=== PATIENT | male | born 1955 | race Caucasian/White ===

== ENCOUNTER 2019-09-02 06:00 | Outpatient (RCR) | payer OTHER, SELFPAY | END 2019-10-02 00:01 | LOC: MPT 06:00 | PROVIDERS: Family Provider Family Medicine; Visit Provider Orthopaedic Surgery | DX: Z47.89 Encounter for other orthopedic aftercare (principal); M25.511 Pain in right shoulder; M25.512 Pain in left shoulder | CPT/HCPCS: 97110 ×4; 97140 ×3 ==

== ENCOUNTER → 2019-10-02 | Outpatient (CLI) | payer SELFPAY | PROVIDERS: Family Provider Family Medicine; Visit Provider Orthopaedic Surgery | DX: S46.911D Strain of unspecified muscle, fascia and tendon at shoulder and upper arm level, right arm, subsequent encounter (principal); X58.XXXD Exposure to other specified factors, subsequent encounter; M19.011 Primary osteoarthritis, right shoulder; R60.9 Edema, unspecified | CPT/HCPCS: 73221 ==

== ENCOUNTER 2019-10-03 06:00 | Outpatient (RCR) | payer OTHER, SELFPAY | END 2019-11-02 23:59 | disposition home or self-care (01) | LOC: MPT 06:00 | PROVIDERS: Family Provider Family Medicine; PCP Family Medicine; Referring Provider Orthopaedic Surgery; Visit Provider Orthopaedic Surgery | DX: M25.512 Pain in left shoulder (principal); M25.511 Pain in right shoulder | CPT/HCPCS: 97110; 97161 ==

== ENCOUNTER 2019-10-03 14:11 | Outpatient (RCR) | payer OTHER, SELFPAY | END 2019-11-02 23:59 | disposition home or self-care (01) | LOC: MPT 14:11 | PROVIDERS: Family Provider Family Medicine; Visit Provider Orthopaedic Surgery | DX: M25.512 Pain in left shoulder (principal); M25.511 Pain in right shoulder | CPT/HCPCS: 97110 ==

== ENCOUNTER → 2019-10-08 15:18 | Outpatient (BNVA) | payer OTHER, SELFPAY | PROVIDERS: Family Provider Family Medicine; PCP Family Medicine; Visit Provider Family Medicine | DX: M54.16 Radiculopathy, lumbar region (principal); I10 Essential (primary) hypertension | CPT/HCPCS: 80048 ==

== ENCOUNTER 2019-11-03 06:00 | Outpatient (RCR) | payer OTHER, SELFPAY | END 2019-11-30 23:59 | disposition home or self-care (01) | LOC: MPT 06:00 | PROVIDERS: Family Provider Family Medicine; PCP Family Medicine; Visit Provider Orthopaedic Surgery | DX: M25.512 Pain in left shoulder (principal); M25.511 Pain in right shoulder | CPT/HCPCS: 97110 ==

== ENCOUNTER 2019-12-02 06:00 | Outpatient (RCR) | payer OTHER, SELFPAY | END 2020-01-01 23:59 | disposition home or self-care (01) | LOC: MPT 06:00 | PROVIDERS: Family Provider Family Medicine; PCP Family Medicine; Visit Provider Orthopaedic Surgery | DX: M25.512 Pain in left shoulder (principal); M25.511 Pain in right shoulder | CPT/HCPCS: 97110 ==

== ENCOUNTER → 2020-08-12 10:23 | Outpatient (BNVA) | payer OTHER, SELFPAY | PROVIDERS: Family Provider Family Medicine; PCP Family Medicine; Visit Provider Family Medicine | DX: I10 Essential (primary) hypertension (principal); Z13.220 Encounter for screening for lipoid disorders; Z13.6 Encounter for screening for cardiovascular disorders; Z91.19 Patient's noncompliance with other medical treatment and regimen; L82.1 Other seborrheic keratosis | CPT/HCPCS: 80053; 80061 ==

== ENCOUNTER → 2021-04-17 14:04 | Outpatient (BNVA) | payer OTHER, SELFPAY | PROVIDERS: Family Provider Family Medicine; PCP Family Medicine; Visit Provider Family Medicine | DX: N20.0 Calculus of kidney (principal); N39.0 Urinary tract infection, site not specified | CPT/HCPCS: 81000 ==

== ENCOUNTER → 2021-06-02 14:02 | Outpatient (BNVA) | payer OTHER, SELFPAY | PROVIDERS: Family Provider Family Medicine; PCP Family Medicine; Visit Provider Family Medicine | DX: Z13.220 Encounter for screening for lipoid disorders (principal); I10 Essential (primary) hypertension; Z13.6 Encounter for screening for cardiovascular disorders; Z86.19 Personal history of other infectious and parasitic diseases; Z13.1 Encounter for screening for diabetes mellitus; R73.9 Hyperglycemia, unspecified | CPT/HCPCS: 80053; 80061; 83036; 83721; 86769 ==

== ENCOUNTER → 2021-07-23 10:47 | Outpatient (BNVA) | payer OTHER, SELFPAY | PROVIDERS: Family Provider Family Medicine; PCP Family Medicine; Visit Provider Family Medicine | DX: Z87.442 Personal history of urinary calculi (principal); R30.0 Dysuria | CPT/HCPCS: 81000 ==

== ENCOUNTER 2021-08-10 10:53 | Outpatient (CLI) | payer OTHER, SELFPAY ==
--- NOTE | 2021-08-10 11:30 | CT_ITS ---
WS: [id number] CT ABDOMEN PELVIS TECHNIQUE: Noncontrast CT of the abdomen and pelvis with coronal and sagittal reformatted images. CLINICAL INFORMATION: Z87.442 - Personal history of urinary calculi COMPARISON: None. DLP: 1219.[address] scans at [facility] use at least one of these dose optimization techniques: automated e xposure control; mA and/or kV adjustment per patient size (includes targeted exams where dose is matc hed to clinical indication); or iterative reconstruction. FINDINGS: Mild hepatomegaly. Low-attenuation lesion in the dome the liver measuring 14 mm likely hepatic cyst. Cholecystectomy clips. Normal GE junction. Lung bases are well aerated. Slight fibrosis right lower l obe medially. Noncontrast spleen is normal. Adrenal glands are normal. No hydronephrosis in either ki dney. No obstructing renal or ureteral calculi. Both ureters are decompressed. Small calculus in the dependent bladder may have recently passed measuring 6 mm. Calcified enlarged prostate. Prostate bharti ures 4.2 x 4.1 CM. Mild fatty atrophy of the pancreas. Lobulated low-attenuation lesion involving the tail of the pancreas measuring 2.7 x 1.6 cm. Normal ap pendix in the right lower quadrant. No evidence of small or large bowel obstruction. Small fat-contai david umbilical hernia. No free fluid in the pelvis. Left renal cortical cyst measuring 1.5 CM. A few nonobstructing tiny calyceal tip calculi. Normal caliber abdominal aorta. No abdominal or pelvic lymp hadenopathy. No inguinal lymphadenopathy. CT/CT kidney stone [id number] IMPRESSION: 1. No obstructing renal or ureteral calculi. No hydronephrosis. 2. Dependent calculus in the bladder measuring 6 mm may have recently passed. 3. Enlarged prostate. Recommend correlation PSA. 4. Prior cholecystectomy clips. 5. Lobulated low-attenuation lesion in the tail of the pancreas measuring 2.7 x 1.6 cm. This can be further evaluated with contrast-enhanced CT abdomen pelvi s pancreatic protocol or MRI pancreas without and with gadolinium. 6. Low-attenuation lesion in the dome of the liver likely hepatic cyst measuri ng 14 mm. 7. Prior cholecystectomy.
== END 2021-08-10 10:54 | disposition home or self-care (01) ==
PROVIDERS: PCP Family Medicine; Visit Provider Family Medicine
DX: Z87.442 Personal history of urinary calculi (principal); Z90.49 Acquired absence of other specified parts of digestive tract; K76.9 Liver disease, unspecified; N40.0 Benign prostatic hyperplasia without lower urinary tract symptoms; N21.0 Calculus in bladder
CPT/HCPCS: 74176

== ENCOUNTER → 2021-08-26 11:16 | Outpatient (BNVA) | payer OTHER, SELFPAY | PROVIDERS: PCP Family Medicine; Visit Provider Family Medicine | DX: I10 Essential (primary) hypertension (principal); Z12.5 Encounter for screening for malignant neoplasm of prostate; N40.0 Benign prostatic hyperplasia without lower urinary tract symptoms | CPT/HCPCS: 80053; 84153 ==

== ENCOUNTER 2021-10-05 11:20 | Outpatient (CLI) | payer OTHER, SELFPAY ==
[2021-10-05 12:43] LABS: Blood Urea Nitrogen 13 mg/dL (8-23); Glomerular Filtration Rate 55.4 mL/min (90-130)
--- NOTE | 2021-10-05 13:00 | CT_ITS ---
WS: [email or web address] CT ABDOMEN PELVIS TECHNIQUE: Contrast-enhanced CT of the abdomen and pelvis with coronal and sagittal reformatted image s. CLINICAL INFORMATION: K86.9 - Disease of pancreas, unspecified COMPARISON: CT August 10, 2021 DLP: 1205.[address] scans at [facility] use at least one of these dose optimization techniques: automated e xposure control; mA and/or kV adjustment per patient size (includes targeted exams where dose is matc hed to clinical indication); or iterative reconstruction. FINDINGS: Again seen is the lobulated low-attenuation lesion in the tail of the pancreas. This does not have a simple cystic appearance and demonstrates peripheral and some internal septal enhancement. This measu res approximately 2.1 x 2.3 cm unchanged from the recent examination. No significant pancreatic duct al dilatation. No other visualized pancreatic lesions. Diffuse fatty infiltration of the liver. Mild hepatomegaly. Prior cholecystectomy clips. Small hepati c cysts. Normal portal vein and splenic vein. Normal spleen. Normal GE junction. Lung bases are well aerated. Adrenal glands are normal. Normal renal parenchymal enhancement. No hydronephrosis. Small ri ght renal cortical cyst measuring 1.5 cm Normal sigmoid colon. Calcified enlarged prostate measuring 4.4 x 4.6 cm. Bilateral thickening of the seminal vesicles. Recommend correlation PSA. No abdominal or pelvic lymphadenopathy. CT/CT abdomen pelvis w con* [id number] IMPRESSION: 1. Peripherally enhancing low-attenuation pancreatic lesion in the tail the pa ncreas measuring 2.3 x 2.1 CCM. Small amount of internal septal enhancement. No pancreatic ductal dilatation. Primary differential considerations include cyst ic pancreatic neoplasm including serous or mucinous Cystadenoma/carcinoma. Side branch IPMN is an additional less likely consideration. Recommend further evalu ation with MRI pancreas without and with gadolinium for better anatomic detail. 2. No abdominal or pelvic lymphadenopathy. 3. Diffuse fatty infiltration of the liver. 4. Enlarged prostate measuring 4.6 x 4.4 cm with associated diffuse thickening of the seminal vesicles. Recommend correlation PSA.
== END 2021-10-05 11:21 | disposition home or self-care (01) ==
PROVIDERS: PCP Family Medicine; Visit Provider Family Medicine
DX: K86.9 Disease of pancreas, unspecified (principal); R93.5 Abnormal findings on diagnostic imaging of other abdominal regions, including retroperitoneum; N40.0 Benign prostatic hyperplasia without lower urinary tract symptoms; K76.0 Fatty (change of) liver, not elsewhere classified
CPT/HCPCS: 74177; 82565; 84520; Q9967

== ENCOUNTER → 2021-10-20 14:30 | Outpatient (BNVA) | payer OTHER, SELFPAY | PROVIDERS: PCP Family Medicine; Visit Provider Family Medicine | DX: K76.0 Fatty (change of) liver, not elsewhere classified (principal); N18.2 Chronic kidney disease, stage 2 (mild); N40.0 Benign prostatic hyperplasia without lower urinary tract symptoms; Z12.5 Encounter for screening for malignant neoplasm of prostate; K86.9 Disease of pancreas, unspecified; R93.5 Abnormal findings on diagnostic imaging of other abdominal regions, including retroperitoneum; Z87.442 Personal history of urinary calculi | CPT/HCPCS: 80053; 84153 ==

== ENCOUNTER 2021-11-02 08:47 | Outpatient (CLI) | payer OTHER, SELFPAY ==
--- NOTE | 2021-11-02 08:53 | XR_ITS ---
WS: [email or web address] XR KUB [id number] REASON FOR EXAM: HX OF RENAL CALCULI FINDINGS: No renal or ureteral calculi. No calculi overlying the urinary bladder. No other significant abdominal abnormality. XR/XR KUB [id number] IMPRESSION: No urinary tract calculi.
== END 2021-11-02 08:48 | disposition home or self-care (01) ==
LOC: RAD 08:49
PROVIDERS: PCP Family Medicine; Visit Provider Urology
DX: Z87.442 Personal history of urinary calculi (principal)
CPT/HCPCS: 74018; 81003

== ENCOUNTER 2022-02-04 15:03 | Outpatient (CLI) | payer OTHER, SELFPAY ==
--- NOTE | 2022-02-04 15:15 | MR_ITS ---
WS: [id number] MRI ABDOMEN with and without CONTRAST. COMPARISON: 10/05/2021 Multiplanar, multisequence imaging is performed with and without contrast. Sagittal and axial T1 fat sat sequences post-MultiHance 20 cc IV. As described on a prior CT is a predominant cystic mass in the tail of the pancreas. This mass has in creased in size now measuring 3.0 x 2.3 cm. On the postcontrast images there is mild peripheral wall enhancement. The pancreatic duct distal to the mass is not dilated. No pancreatic atrophy. The body a nd head of the pancreas are normal. This mass is predominantly cystic and may be related to the duct. Liver is very mildly prominent with 2 cysts. The larger cyst measures 12 x 13 mm just to the RIGHT of the LEFT portal vein. No portal vein thrombosis. No bile duct dilatation. There is loss of signal on the out of phase imaging. Spleen is normal size. No adrenal mass. Both kidneys are normal size. There is a simple cyst exophytic from the medial upper pole LEFT kidney . This cyst measures 1.3 x 1.3 cm. No wall enhancement. There is no ascites or adenopathy. Normal aorta. Mesenteric arteries are normally enhancing proximall y. MR/MR abdomen wo/w con* [id number] IMPRESSION: 1. Mild enlargement of the previously described cystic mass in the pancreatic t ail since 10/05/2021. There is mild enhancement of the wall of this pancreatic ma ss. Cystic mass mass now measures 3.0 x 2.3 cm as compared to 2.1 x 2.3 cm on t he prior CT. Differential includes cystic neoplasm or IPMN. Surgical evaluation and possible removal is recommended as malignancy is not excluded due to the w all enhancement and increasing size. 2. Small hepatic cysts and LEFT renal cysts. 3. Hepatic steatosis.
[2022-02-04] MEDS: gadobenate dimeglumine 20 mL vial IV (16:07)
== END 2022-02-04 15:04 | disposition home or self-care (01) ==
LOC: RAD 15:04
PROVIDERS: PCP Family Medicine; Visit Provider Family Medicine
DX: K86.9 Disease of pancreas, unspecified (principal); R93.5 Abnormal findings on diagnostic imaging of other abdominal regions, including retroperitoneum
CPT/HCPCS: 74183

== ENCOUNTER 2022-05-03 12:35 | Outpatient (CLI) | payer OTHER, SELFPAY ==
--- NOTE | 2022-05-03 12:30 | XR_ITS ---
WS: [email or web address] KUB, AP view, 05/03/2022. Clinical Data: UROLITHIASIS Comparison: KUB, 11/02/2021. Findings: No abnormal intraabdominal masses or calcifications are seen. There is no dilatated small bowel or ev idence of obstruction. There is a minimal amount of fecal material in the colon. XR/XR KUB [id number] Impression: Negative KUB.
== END 2022-05-03 12:36 | disposition home or self-care (01) ==
LOC: RAD 12:36
PROVIDERS: PCP Family Medicine; Visit Provider Urology
DX: N20.9 Urinary calculus, unspecified (principal); N40.1 Benign prostatic hyperplasia with lower urinary tract symptoms
CPT/HCPCS: 74018; 99213

== ENCOUNTER → 2022-07-19 10:02 | Outpatient (BNVA) | payer OTHER, SELFPAY | PROVIDERS: PCP Family Medicine; Visit Provider Family Medicine | DX: I10 Essential (primary) hypertension (principal); Z13.220 Encounter for screening for lipoid disorders; Z13.6 Encounter for screening for cardiovascular disorders; K86.9 Disease of pancreas, unspecified; J01.10 Acute frontal sinusitis, unspecified | CPT/HCPCS: 80053; 80061 ==

== ENCOUNTER → 2022-10-06 10:02 | Outpatient (BNVA) | payer OTHER, SELFPAY | PROVIDERS: PCP Family Medicine; Visit Provider Family Medicine | DX: I10 Essential (primary) hypertension (principal); H65.90 Unspecified nonsuppurative otitis media, unspecified ear; M25.511 Pain in right shoulder; S46.811A Strain of other muscles, fascia and tendons at shoulder and upper arm level, right arm, initial encounter; X58.XXXA Exposure to other specified factors, initial encounter | CPT/HCPCS: 73030 ==

== ENCOUNTER → 2022-10-19 09:52 | Outpatient (BNVA) | payer OTHER, SELFPAY | PROVIDERS: PCP Family Medicine; Visit Provider Family Medicine | DX: M54.2 Cervicalgia (principal); M25.511 Pain in right shoulder; S46.811A Strain of other muscles, fascia and tendons at shoulder and upper arm level, right arm, initial encounter; I10 Essential (primary) hypertension; X58.XXXA Exposure to other specified factors, initial encounter | CPT/HCPCS: 72040; 80048 ==

== ENCOUNTER → 2022-11-11 14:38 | Outpatient (BNVA) | payer OTHER, SELFPAY | PROVIDERS: PCP Family Medicine; Referring Provider Nurse Practitioner Family; Visit Provider Physician Assistant | DX: M50.30 Other cervical disc degeneration, unspecified cervical region (principal); M47.812 Spondylosis without myelopathy or radiculopathy, cervical region | CPT/HCPCS: 72050; 99203 ==

== ENCOUNTER 2022-11-29 06:00 | Outpatient (RCR) | payer OTHER, SELFPAY | END 2022-11-30 23:59 | disposition home or self-care (01) | LOC: MPT 06:00 | PROVIDERS: PCP Family Medicine; Visit Provider Physician Assistant | DX: M54.2 Cervicalgia (principal) | CPT/HCPCS: 51798; 97110; 97161; 99213 ==

== ENCOUNTER 2022-11-29 14:54 | Outpatient (CLI) | payer OTHER, SELFPAY ==
--- NOTE | 2022-11-29 15:06 | XR_ITS ---
WS: [email or web address] KUB, AP view, 11/29/2022 Clinical Data: STONES Comparison: KUB, 05/03/2022 Findings: No abnormal intraabdominal masses or calcifications are seen. There is no dilatated small bowel or ev idence of obstruction. There is a minimal amount of fecal material in the descending colon. There are clips in the right upp er quadrant from a cholecystectomy. XR/XR KUB [id number] Impression: Negative KUB.
== END 2022-11-29 14:55 | disposition home or self-care (01) ==
LOC: LAB 14:59
PROVIDERS: PCP Family Medicine; Visit Provider Urology
DX: N20.9 Urinary calculus, unspecified (principal); N40.1 Benign prostatic hyperplasia with lower urinary tract symptoms
CPT/HCPCS: 74018; 81003

== ENCOUNTER 2022-12-01 06:00 | Outpatient (RCR) | payer OTHER, SELFPAY | END 2022-12-31 23:59 | disposition home or self-care (01) | LOC: MPT 06:00 | PROVIDERS: PCP Family Medicine; Visit Provider Physician Assistant | DX: M54.2 Cervicalgia (principal) | CPT/HCPCS: 97110; 97140; G0283 ==

== ENCOUNTER → 2022-12-23 12:56 | Outpatient (BNVA) | payer OTHER, SELFPAY | PROVIDERS: PCP Family Medicine; Visit Provider Physician Assistant | DX: M47.812 Spondylosis without myelopathy or radiculopathy, cervical region (principal); M50.30 Other cervical disc degeneration, unspecified cervical region; M54.12 Radiculopathy, cervical region | CPT/HCPCS: 99213 ==

== ENCOUNTER 2022-12-31 14:57 | Outpatient (CLI) | payer OTHER, SELFPAY ==
--- NOTE | 2022-12-31 15:15 | MR_ITS ---
WS: [id number] MRI CERVICAL SPINE NONCONTRAST HISTORY: Neck pain, RIGHT upper extremity pain. COMPARISON: None available. Technique: Multiplanar, multisequence noncontrast imaging of the cervical spine. Straightening of the normal cervical lordosis. Signal within the cervical cord is normal. Visualized posterior fossa is unremarkable. Craniocervical junction, C1 and C2 relationship, odontoid process and soft tissues are normal. C2-C3: LEFT foraminal disc osteophyte. Mild encroachment and displacement of the exiting nerve root. Moderate LEFT foraminal stenosis. C3-C4: Osteophytic ridging and disc bulging. Bilateral foraminal osteophytes. Moderate bilateral fora elle stenosis. C4-C5: Disc and osteophyte encroachment upon the ventral thecal sac. Effacement of ventral CSF with b ilateral disc osteophyte complexes and the neural foramina. Mild central with moderate foraminal sten osis. C5-C6: Mild annular disc bulging with moderate size central disc protrusion. Deformity the ventral th ecal sac. Moderate to severe central with mild foraminal stenosis. C6-C7: Mild annular disc bulging and osteophytic ridging. Small central disc protrusion. Moderate emilia ateral foraminal osteophytes. Moderate central with moderate bilateral foraminal stenosis. C7-T1: Normal. Paraspinal soft tissue are normal. MR/MR cervical spin wo con* [id number] IMPRESSION: 1. Straightening of the normal cervical lordosis. 2. Multilevel disc osteophyte complexes resulting in central and foraminal valentine nosis. 3. Moderate to severe central with mild bilateral foraminal stenosis at C5-6. 4. Moderate central with moderate bilateral foraminal stenosis at C6-7. 5. Moderate LEFT foraminal stenosis at C2-3. 6. Moderate bilateral foraminal stenosis at C3-4. 7. Mild central with moderate foraminal stenosis at C4-5.
== END 2022-12-31 14:58 | disposition home or self-care (01) ==
PROVIDERS: PCP Family Medicine; Visit Provider Physician Assistant
DX: M47.812 Spondylosis without myelopathy or radiculopathy, cervical region (principal); M25.78 Osteophyte, vertebrae; M48.02 Spinal stenosis, cervical region
CPT/HCPCS: 72141

== ENCOUNTER 2023-01-01 06:00 | Outpatient (RCR) | payer OTHER, SELFPAY | END 2023-01-30 23:59 | disposition home or self-care (01) | LOC: MPT 06:00 | PROVIDERS: PCP Family Medicine; Visit Provider Physician Assistant | DX: M54.2 Cervicalgia (principal) | CPT/HCPCS: 97110; 97140; G0283 ==

== ENCOUNTER → 2023-01-18 10:46 | Outpatient (BNVA) | payer OTHER, SELFPAY | PROVIDERS: PCP Family Medicine; Visit Provider Physician Assistant | DX: M50.30 Other cervical disc degeneration, unspecified cervical region (principal); M47.22 Other spondylosis with radiculopathy, cervical region | CPT/HCPCS: 99213 ==

== ENCOUNTER 2023-03-03 06:00 | Outpatient (RCR) | payer OTHER, SELFPAY | END 2023-04-01 23:59 | disposition home or self-care (01) | LOC: MPT 06:00 | PROVIDERS: PCP Family Medicine; Visit Provider Physician Assistant | DX: M54.2 Cervicalgia (principal) | CPT/HCPCS: 97110; 97140 ==

== ENCOUNTER → 2023-03-09 09:12 | Outpatient (BNVA) | payer OTHER, SELFPAY | PROVIDERS: PCP Family Medicine; Referring Provider Nurse Practitioner Family; Visit Provider Anesthesiology Pain Medicine | DX: M48.02 Spinal stenosis, cervical region (principal) | CPT/HCPCS: 99204 ==

== ENCOUNTER 2023-04-02 06:00 | Outpatient (RCR) | payer OTHER, SELFPAY | END 2023-04-21 23:59 | disposition home or self-care (01) | LOC: MPT 06:00 | PROVIDERS: PCP Family Medicine; Visit Provider Physician Assistant | DX: M54.2 Cervicalgia (principal) | CPT/HCPCS: 97110; 97140; G0283 ==

== ENCOUNTER → 2023-04-11 09:35 | Outpatient (BNVA) | payer OTHER, SELFPAY | PROVIDERS: PCP Family Medicine; Visit Provider Family Medicine | DX: Z12.5 Encounter for screening for malignant neoplasm of prostate (principal); I10 Essential (primary) hypertension; Z13.1 Encounter for screening for diabetes mellitus; R73.9 Hyperglycemia, unspecified; N18.2 Chronic kidney disease, stage 2 (mild) | CPT/HCPCS: 80053; 80061; 83036; 83721; G0103 ==

== ENCOUNTER → 2023-04-28 09:28 | Outpatient (BNVA) | payer OTHER, SELFPAY | PROVIDERS: PCP Family Medicine; Visit Provider Anesthesiology Pain Medicine | DX: M54.16 Radiculopathy, lumbar region (principal); M48.02 Spinal stenosis, cervical region | CPT/HCPCS: 99214 ==

== ENCOUNTER → 2023-07-28 10:26 | Outpatient (BNVA) | payer OTHER, SELFPAY | PROVIDERS: PCP Family Medicine; Visit Provider Anesthesiology Pain Medicine | DX: M54.16 Radiculopathy, lumbar region (principal); M79.601 Pain in right arm | CPT/HCPCS: 99214 ==

== ENCOUNTER → 2024-04-09 11:46 | Outpatient (BNVA) | payer OTHER, SELFPAY | PROVIDERS: PCP Family Medicine; Visit Provider Family Medicine | DX: Z12.5 Encounter for screening for malignant neoplasm of prostate (principal); I10 Essential (primary) hypertension; R74.8 Abnormal levels of other serum enzymes; N18.2 Chronic kidney disease, stage 2 (mild) | CPT/HCPCS: 80053; 80061; 82977; 83690; 83721; G0103 ==

== ENCOUNTER 2024-04-27 08:38 | Outpatient (CLI) | payer OTHER, SELFPAY ==
--- NOTE | 2024-04-27 09:00 | US_ITS ---
WS: [email or web address] Complete ABDOMINAL ULTRASOUND HISTORY: R74.8 - Abnormal levels of other serum enzymes COMPARISON: None available. Liver: 17.5 cm in length. Liver is top normal size. Surface of the liver is irregular and nodular typ ically seen with cirrhosis. The entire liver is not well visualized. There is a tiny hypoechoic regio n in a portion of the liver, suspect this is the LEFT lobe measuring 1.1 x 1.1 x 1.1 cm. This is prob ably a small cyst. Portal Vein: Normal hepatopetal flow with monophasic waveform. Gallbladder: Prior cholecystectomy. CBD: 0.8 cm, common bile duct is not adequately visualized. Appears to be top normal size. Probably d ue to the postcholecystectomy state. No intrahepatic dilatation. Pancreas: Obscured. Right kidney: 10.3 cm x 4.5 x 5.4 cm. Cortex:1.1 cm. Normal size and echogenicity. No hydronephrosis or mass. Left kidney: 10.2 cm x 4.3 cm x 4.7 cm. Cortex: 1.3 cm. Normal size and echogenicity. No hydronephrosis or mass. Spleen: 8.7 cm. Normal size and echogenicity. Aorta and IVC: Unremarkable abdominal aorta and IVC. US/US abdomen complete* [id number] Impression: 1. Technically difficult and limited evaluation of the abdominal structures. 2. Prior cholecystectomy. 3. Hepatic steatosis. Surface of the liver is slightly irregular suggesting ci rrhosis. No solid mass or bile duct dilatation. 4. Pancreas not visualized. 5. No renal obstruction.
== END 2024-04-27 08:39 | disposition home or self-care (01) ==
LOC: RAD 08:38
PROVIDERS: PCP Family Medicine; Visit Provider Family Medicine
DX: R74.8 Abnormal levels of other serum enzymes (principal); Z90.49 Acquired absence of other specified parts of digestive tract; K76.0 Fatty (change of) liver, not elsewhere classified; K76.89 Other specified diseases of liver
CPT/HCPCS: 76700

== ENCOUNTER → 2024-10-24 14:01 | Outpatient (BNVA) | payer OTHER, SELFPAY | PROVIDERS: PCP Family Medicine; Visit Provider Family Medicine | DX: I10 Essential (primary) hypertension (principal); K76.0 Fatty (change of) liver, not elsewhere classified; E78.2 Mixed hyperlipidemia; R73.03 Prediabetes | CPT/HCPCS: 80053; 80061; 83036; 83721 ==

== ENCOUNTER 2025-02-17 08:42 | Inpatient (IN) | payer OTHER, SELFPAY ==
[2025-02-17] VITALS (9 sets, daily range): BP systolic 149–174; BP diastolic 86–99; PULSE 62–83; RESP 18–19; TEMP 36.6–36.9; O2SAT 96–99; BMI 30.2
--- NOTE | 2025-02-17 08:43 | XRR_ITS ---
PROCEDURE INFORMATION: Exam: XR Chest Exam date and time: 02/17/2025 8:55 AM Age: 69 years old Clinical indication: Pain; Chest pressure; Additional info: Cp TECHNIQUE: Imaging protocol: Radiologic exam of the chest. Views: 1 view. COMPARISON: MR cervical spin wo con* [id number] 12/31/2022 4:00 PM FINDINGS: Lungs: Unremarkable. No consolidation. Pleural spaces: Unremarkable. No pleural effusion. No pneumothorax. Heart/Mediastinum: Unremarkable. No cardiomegaly. Bones/joints: There are degenerative changes of the thoracic spine XR/XR chest 1V portable [id number] IMPRESSION: No acute abnormality
--- NOTE | 2025-02-17 08:47 | ECG_ITS ---
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 Measurements Intervals [place] Rate: 75 P: 70 ID: [id number] QRS: 85 QRSD: 145 T: 38 QT: 405 QTc: 455 Interpretive Statements SINUS RHYTHM RIGHT BUNDLE BRANCH BLOCK [120+ ms QRS DURATION, UPRIGHT V1, 40+ ms S IN I/aVL/V4/V5/V6] No previous ECG available for comparison Electronically Signed On 02-17-2025 12:28:18 CDT by Beverly Kaplan M.D. [email or web address]
[2025-02-17 09:13] LABS: Basophils # 0.1 10^3/uL (0.0-0.1); Basophils % 0.8 %; Eosinophils # 0.1 10^3/uL (0.0-0.8); Eosinophils % 2.4 %; Hematocrit 47.2 % (37-53); Lymphocytes # 2.5 10^3/uL (0.8-4.8); Lymphocytes % 42.2 %; Mean Corpuscular HGB Conc 33.7 g/dL (30-55); Mean Corpuscular Hemoglobin 29.8 pg (27-33); Mean Corpuscular Volume 88.6 fl (82-101); Mean Platelet Volume 9.6 fL (7.4-10.4); Monocytes # 0.4 10^3/uL (0.2-0.9); Monocytes % 6.6 %; Neutrophils # 2.84 10^3/uL (1.8-7.7); Neutrophils % 47.8 %; Nucleated Red Blood Cells % 0 %; Platelet Count 192 10^3/cmm (157-399); Red Blood Count 5.33 10^6/uL (3.85-5.65); White Blood Count 5.93 10^3/uL (3.29-11.43)
[2025-02-17 09:28] LABS: Troponin(5th) Baseline 50 ng/L (0-15)
[2025-02-17 09:35] LABS: Alanine Aminotransferase 43 U/L (0-41); Albumin Level 4.4 g/dL (3.5-5.2); Alkaline Phosphatase 78 U/L (40-130); Anion Gap 17.1 (5-19); Aspartate Amino Transferase 40 U/L (0-40); Blood Urea Nitrogen 19 mg/dL (8-23); Calcium 10.1 mg/dL (8.5-10.5); Carbon Dioxide 23 mmol/L (22-29); Chloride 103 mmol/L (98-107); Globulin 3.3 g/dL (1.3-4.6); Glomerular Filtration Rate 66.6 mL/min (90-130); Glucose 112 mg/dL (65-115); Lipase 104 U/L (13-60); Osmolality Calculated 291 mOsm/kg (285-295); Potassium 4.1 mmol/L (3.5-5.1); Sodium 139 mmol/L (136-145); Total Bilirubin 0.5 mg/dL (0.15-1.2); Total Protein 7.7 g/dL (6.6-8.7)
--- NOTE | 2025-02-17 09:57 | W.ED.CHESTPA ---
HPI - Chest Pain General: Chief Complaint: Chest Pain Stated Complaint: chest pain Time Seen by Provider: 02/17/25 09:09 Source: patient Mode of arrival: ambulatory Limitations: no limitations History of Present Illness: 69-year-old male states has been having some intermittent chest pain since . States he had a pressure type pain seems to come and go he states he had a pain this morning he is currently pain-free no history of heart disease. He denies any fever cough denies any worse improved factors. Associated symptoms: Deny abdominal pain, dyspnea, fever(s), nausea or vomiting Related Data Home Medications ?Medication ?Instructions ?Recorded ?Confirmed ascorbic acid (vitamin C) 1,000 mg 1,000 mg PO DAILY 02/17/25 02/17/25 tablet (Vitamin C) cholecalciferol (vitamin D3) 125 125 mcg PO DAILY 02/17/25 02/17/25 mcg (5,000 unit) tablet (Vitamin D3) garlic 300 mg capsule 300 mg PO DAILY 02/17/25 02/17/25 multivitamin with minerals-folic 1 tab PO DAILY 02/17/25 02/17/25 acid 400 mcg-lycopene 370 mcg tablet (One-A-Day Men's 50 Plus) omega-3 fatty acids-fish oil 684 1 cap PO DAILY 02/17/25 02/17/25 mg-1,200 mg capsule,delayed release Previous Rx's ?Medication ?Instructions ?Recorded losartan 50 mg-hydrochlorothiazide 1 tab PO BID 90 days #180 tabs 04/09/24 12.5 mg tablet Held on 10/24/24. Instructions: pt holding on his own Allergies Allergy/AdvReac Type Severity Reaction Status Date / Time prednisone Allergy Mild ADR-Headach Verified 10/24/24 13:34 e Review of Systems Const: Denies: fever(s), chills, body aches or change in appetite ENMT: Denies: throat pain or dental pain Card: Reports: chest pain Resp: Denies: dyspnea GI: Denies: abdominal pain, nausea, vomiting or diarrhea Musc: Denies: neck pain or back pain Skin/Breast: Denies: rash Neuro: Denies: headache(s) PFSH ED PFSH: Medical History BPH loc w urin obs/LUTS Urolithiasis Hypertension Surgical History H/O shoulder surgery Hx of cholecystectomy Family History Father , at age 92 No problems noted. Mother , at age 86 Stroke Social History Smoking and tobacco/nicotine status: never used tobacco/nicotine Alcohol intake: current Alcohol intake frequency: holidays/special occasions only Substance/Drug Use: never Marital status: Current occupational status: retired Current occupation: semi retired Current gender identity: Male Physical Exam Const: COMMON NORMALS: no acute distress, patient oriented x3 and healthy appearing HENMT: COMMON NORMALS: normocephalic and atraumatic HEAD & SCALP: normocephalic and atraumatic Eye: COMMON NORMALS: conjunctivae normal CONJUNCTIVA: Yes conjunctivae normal Neck/C-Spine: COMMON NORMALS: full ROM and supple Chest: COMMONS NORMALS: normal inspection of the chest and normal palpation of entire chest wall Resp: COMMON NORMALS: normal respiratory effort, No retractions, No use of accessory muscles and clear to auscultation bilaterally AUSCULTATION: clear to auscultation bilaterally Cardio: COMMON NORMALS: regular rate, regular rhythm and No murmurs present (Cardio) RATE: regular rate RHYTHM: regular rhythm GI: COMMON NORMALS: Normal to inspection, nondistended, normoactive bowel sounds present, Soft to palpation, non-tender and no masses PALPATION: Yes Soft to palpation Extremity: COMMON NORMALS: normal to inspection and full ROM Neuro: COMMON NORMALS: patient oriented x3, moves all extremities and no focal motor deficits Psych: COMMON NORMALS: mental status grossly normal, Normal thought process present and cooperative THOUGHT PROCESS: Normal thought process present Skin: COMMON NORMALS: no rashes or lesions noted and no wounds GENERAL SKIN EXAM: no rashes or lesions noted Course Vital Signs: Vital signs: Vital Signs Temperature 98.4 F 02/17/25 08:47 Pulse Rate 62 02/17/25 10:36 Respiratory Rate 18 02/17/25 08:47 Blood Pressure 152/95 02/17/25 10:36 Pulse Oximetry 96 02/17/25 10:36 Oxygen Delivery Me thod Room Air 02/17/25 10:36 MDM - Chest Pain Medical Decision Making Patient presents for chest pain he been chest pain-free here 2-hour troponin did have a delta of 9 will admit for ACS rule out. Medical Records I reviewed the patient's medical records. Lab Data I reviewed the patient's lab results. 02/17/25 09:04 02/17/25 09:04 Radiology Impressions Chest X-Ray 02/17/25 08:43 IMPRESSION: No acute abnormality Laboratory Results WBC 5.93 10^3/uL (3.29-11.43) 02/17/25 09:04 RBC 5.33 10^6/uL (3.85-5.65) 02/17/25 09:04 Hgb 15.90 g/dL (11.27-16.99) 02/17/25 09:04 Hct 47.2 % (37-53) 02/17/25 09:04 MCV 88.6 fl (82-101) 02/17/25 09:04 MCH 29.8 pg (27-33) 02/17/25 09:04 MCHC 33.7 g/dL (30-55) 02/17/25 09:04 RDW 12.0 % (12.1-15.1) L 02/17/25 09:04 Plt Count 192 10^3/cmm (157-399) 02/17/25 09:04 MPV 9.6 fL (7.4-10.4) 02/17/25 09:04 Neut % (Auto) 47.8 % 02/17/25 09:04 Lymph % (Auto) 42.2 % 02/17/25 09:04 [place] % (Auto) 6.6 % 02/17/25 09:04 Eos % (Auto) 2.4 % 02/17/25 09:04 Baso % (Auto) 0.8 % 02/17/25 09:04 Neut # (Auto) 2.84 10^3/uL (1.8-7.7) 02/17/25 09:04 Lymph # (Auto) 2.5 10^3/uL (0.8-4.8) 02/17/25 09:04 [place] # (Auto) 0.4 10^3/uL (0.2-0.9) 02/17/25 09:04 Eos # (Auto) 0.1 10^3/uL (0.0-0.8) 02/17/25 09:04 Baso # (Auto) 0.1 10^3/uL (0.0-0.1) 02/17/25 09:04 Nucleated RBC % (auto) 0 % 02/17/25 09:04 Nucleated RBCs # 0.0 /100WBC 02/17/25 09:04 Sodium 139 mmol/L (136-145) 02/17/25 09:04 Potassium 4.1 mmol/L (3.5-5.1) 02/17/25 09:04 Chloride 103 mmol/L (98-107) 02/17/25 09:04 Carbon Dioxide 23 mmol/L (22-29) 02/17/25 09:04 Anion Gap 17.1 (5-19) 02/17/25 09:04 BUN 19 mg/dL (8-23) 02/17/25 09:04 Creatinine 1.1 mg/dL (0.7-1.2) 02/17/25 09:04 GFR Calculation 66.6 mL/min (90-130) L 02/17/25 09:04 Glucose 112 mg/dL (65-115) 02/17/25 09:04 Calculated Osmolality 291 mOsm/kg (285-295) 02/17/25 09:04 Calcium 10.1 mg/dL (8.5-10.5) 02/17/25 09:04 Total Bilirubin 0.5 mg/dL (0.15-1.2) 02/17/25 09:04 AST 40 U/L (0-40) 02/17/25 09:04 ALT 43 U/L (0-41) H 02/17/25 09:04 Alkaline Phosphatase 78 U/L (40-130) 02/17/25 09:04 Troponin T Baseline 50 ng/L (0-15) H 02/17/25 09:04 Troponin T 120 Minute 59.78 ng/L (0-15) H 02/17/25 11:13 Delta Troponin T 9.78 ABS# (0-10) 02/17/25 11:13 Total Protein 7.7 g/dL (6.6-8.7) 02/17/25 09:04 Albumin 4.4 g/dL (3.5-5.2) 02/17/25 09:04 Globulin 3.3 g/dL (1.3-4.6) 02/17/25 09:04 Lipase 104 U/L (13-60) H 02/17/25 09:04 All radiology interpretation(s) finalized by discharge EKG Data EKG 1: I personally reviewed and interpreted this EKG as follows: EKG interpretation date: 02/17/25 EKG interpretation time: 08:47 Interpretation: nsr hr [address] elevation qrs 145 qtc 435 EKG 2: I personally reviewed and interpreted this EKG as follows: EKG interpretation date: 02/17/25 EKG interpretation time: 11:40 Interpretation: sinus honey hr [address] elevation qrs 145 qtc 396 Discharge Plan Discharge Patient Disposition: Admitted As Inpatient Clinical Impression: Chest pain Condition: Stable Coding Level of Care Code ED Ophthalmic Medical Technologist for Edison Donato
--- NOTE | 2025-02-17 10:31 | PC.PHAR ---
Patient states he stopped taking his Losartan-hct ,but yesterday he took one tablet hoping it would make him feel better ..
[2025-02-17 11:35] LABS: Troponin 5 2HR 59.78 ng/L (0-15); Troponin 5 2HR Delta 9.78 ABS# (0-10)
--- NOTE | 2025-02-17 11:40 | ECG_ITS ---
[facility] 2025-02-17 Pat Name: Abhay Lara Department: Room: Gender: Male Auto Transmission Mechanic: : 1955 Requested By: Hubert Vines Order Number: [id number] Danyelle MD: Beverly Kaplan M.D. Measurements Intervals [place] Rate: 51 P: 56 [place]: 154 QRS: 82 QRSD: 145 T: 37 QT: 418 QTc: 389 Interpretive Statements SINUS BRADYCARDIA RIGHT BUNDLE BRANCH BLOCK [120+ ms QRS DURATION, UPRIGHT V1, 40+ ms S IN I/aVL/V4/V5/V6] Compared to ECG 02/17/2025 08:47:39 Sinus rhythm no longer present Electronically Signed On 02-17-2025 12:36:58 CDT by Beverly Kaplan M.D. [email or web address]
--- OUTSIDE RECORDS SUMMARY | 2025-02-17 12:17 | XMS_ITS | Continuity of Care Document ---
Author Name [facility] Organization [facility] Care Team Providers Care Spring Encaser Name Role Phone [facility] Unavailable Unavailable Problems Combined list of problems from Department of Defense and Veterans Affairs facilities. It does not include entries that were removed or entered in error. Problem Status Onset Date Problem Type Date of Resolution Comments Source Chronic kidney disease stage 2 Active Condition Nov 18, 2021 Entered By: SHIVANI ACEVEDO Comment: 10/20/21 - eGFR 60-89ml/min [facility] Chronic sinusitis Active Condition [facility] Cigarette smoker Active Condition Nov 18, 2021 Entered By: SHIVANI ACEVEDO Comment: Daily [facility] Contusion of hand Active Condition [facility] Disorder of pancreas Active Condition Nov 18, 2021 Entered By: SHIVANI ACEVEDO Comment: 10/05/2021 - CT abdomen pelvis with contrast per Dr. Carina Nguyễn - peripherally enhancing low-attenuati on pancreatic lesion in the tail of the pancreas measuring 2.3x2.1cm. [facility] Elevated liver enzymes level Active Condition [facility] Enlarged prostate Active Condition 2021 Entered By: SHIVANI ACEVEDO Comment: Per [facility] - 10/05/21 CT scan - enlarged prostate measuring 4.6x4.4cm with associated diffuse thickening of the seminal vesicles. [facility] Fatty liver Active Condition Nov 18, 2021 Entered By: SHIVANI ACEVEDO Comment: Per CT Scan on 10/05/21 at [facility] Hand joint pain Active Condition [facility] Hernia (SNOMED CT 64996348) Active Condition [facility] History of kidney stone Active Condition [facility] HLD - Hyperlipidemia (SNOMED CT 24395826) Active Condition [facility] HTN - Hypertension (SNOMED CT 48928594) Active Condition [facility] Medial epicondylitis [facility] - Tetanus-diphtheria [td] [dt] (ICD-9-CM V06.5) Inactive Condition 12/07/2019 [facility] Allergies, Adverse Reactions, Alerts Combined list of allergies from [facility] and [facility] facilities. It does not include entries that were removed or entered in error. Substance Category Reaction Severity Reaction type Status Date Reported Comments Source ATORVASTATIN Propensity to adverse reactions to drug (finding) Muscle pain active 4 [facility] PREDNISONE Propensity to adverse reactions to drug (finding) active 0 [facility] Immunizations Combined list of available immunizations from the [facility] and [facility] facilities. Immunization Series Date Given Administered By Site Reaction Lot Number CVX Code Drug Legal Analyst Status Comments Source TDAP 2019 115 complet ed [facility] TDAP 2013 115 complet ed Left Deltoid [facility] Encounters Combined list of: 1) Encounters from Department of Veterans Affairs facilities going backup to the last 18 months, not all [place] inpatient encounters are included; 2) Encounters from the [facility] facilities going backup to 280 months. Location Location Details Encounter Type Encounter Number Reason For Visit Attending Provider ADM Date DC Date Status Disposition Source [facility] Outpatient Encounter [id number] 09/21 [facility] Outpatient Encounter [id number] 10/10 [facility] Outpatient Encounter [id number] 10/17 [facility] Outpatient Encounter [id number] Jhony NGUYỄN 10/18 [facility] Social History Combined list of available smoking, tobacco, and other social history from [facility] and Veterans Affairs facilities. Social History Type Response Date Comment Sour e Tobacco smoking status [facility] NEVER USED 11/29/2019 [facility] History of tobacco use QUIT TOBACCO >7 Y EARS AGO 12/27/2013 [facility]
[2025-02-17] MEDS: enoxaparin 100 mg/mL Syringe 90 MG SUBCUT (12:40)
--- NOTE | 2025-02-17 14:43 | ECG_ITS ---
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 Measurements Intervals [place] Rate: 68 P: 68 FL: 169 QRS: 72 QRSD: 141 T: 30 QT: 387 QTc: 412 Interpretive Statements SINUS RHYTHM RIGHT BUNDLE BRANCH BLOCK [120+ ms QRS DURATION, UPRIGHT V1, 40+ ms S IN I/aVL/V4/V5/V6] Compared to ECG 02/17/2025 11:40:22 Sinus bradycardia no longer present Electronically Signed On 02-17-2025 19:58:52 CDT by Beverly Kaplan M.D. [email or web address]
[2025-02-17 15:49] LABS: Troponin 5 6HR 93.44 ng/L (0-15)
[2025-02-17 15:52] LABS: Troponin 5 6HR Delta 43.44 ng/L (0-12)
--- NOTE | 2025-02-17 16:20 | PM.HP ---
Providers/Chief Complaint Admitting Physician: Raymon Ansari DO Primary Care Provider: Carina Nguyễn MD Chief Complaint: chest pain History of Present Illness Abhay Lara is a 69 year old male presents with episodes of chest pain since . He first noticed it while he was building a chicken coop. He describes the pain as substernal with a few centimeters of red radiation. He describes this as a chest pressure deep inside. This lasted 15 to 20 minutes he slowed down. And it resolved a few hours later he had a similar episode. Discontinued on Tuesday and Tuesday for 3-5 episodes per day while he continued to do some labor. However Tuesday night he was lying in bed when it first started at rest. He was able to fall asleep and in the morning when he awoke the pain was still there it was worse in intensity he described it again as pressure and discomfort he had a little nausea with it this time. Thus he came into the emergency room. Patient has no prior history of cardiac disease he states that he has been on losartan at 1 time but then lost weight and has not resumed he states that he denies any cholesterol problems although labs in October show hypercholesterolemia and he denies tobacco abuse or diabetes mellitus. In the ED his initial troponin was 50, 2-hour troponin 59 and 6-hour troponin is 93. Called and spoke with cardiology who will prepare for cardiac catheterization tomorrow. Patient will be placed on oxygen he received a dose of Lovenox he will get aspirin and as needed nitro Review of Systems Const: Denies: fever(s) or chills Eyes: Denies: change in vision ENMT: Denies: throat pain or nasal congestion Card: Reports: chest pain; Denies: palpitations Resp: Denies: dyspnea or productive cough GI: Reports: nausea; Denies: abdominal pain, vomiting or change in stool character : Denies: difficulty urinating or dysuria Musc: Denies: back pain or extremity pain Skin/Breast: Denies: rash or lesions Neuro: Denies: headache(s) or dizziness Psych: Denies: anxiety or depression Jesús/Lymph: Denies: easy bruising or easy bleeding Medications/Allergies Home Medications ?Medication ?Instructions ?Recorded ?Confirmed ?Last Taken ?Type losartan 50 mg-hydrochlorothiazide 1 tab PO BID 90 days #180 tabs 04/09/24 02/17/25 02/16/25 Rx 12.5 mg tablet Held on 10/24/24. Instructions: pt holding on his own ascorbic acid (vitamin C) 1,000 mg 1,000 mg PO DAILY 02/17/25 02/17/25 02/16/25 History tablet (Vitamin C) cholecalciferol (vitamin D3) 125 125 mcg PO DAILY 02/17/25 02/17/25 02/16/25 History mcg (5,000 unit) tablet (Vitamin D3) garlic 300 mg capsule 300 mg PO DAILY 02/17/25 02/17/25 02/16/25 History multivitamin with minerals-folic 1 tab PO DAILY 02/17/25 02/17/25 02/16/25 History acid 400 mcg-lycopene 370 mcg tablet (One-A-Day Men's 50 Plus) omega-3 fatty acids-fish oil 684 1 cap PO DAILY 02/17/25 02/17/25 02/16/25 History mg-1,200 mg capsule,delayed release Allergies Allergy/AdvReac Type Severity Reaction Status Date / Time prednisone Allergy Mild ADR-Headach Verified 10/24/24 13:34 e PFSH Acute PFSH: Medical History BPH loc w urin obs/LUTS Urolithiasis Hypertension Surgical History H/O shoulder surgery Hx of cholecystectomy Family History Father , at age 92 No problems noted. Mother , at age 86 Stroke Social History Smoking and tobacco/nicotine status: never used tobacco/nicotine Alcohol intake: current Alcohol intake frequency: holidays/special occasions only Substance/Drug Use: never Marital status: Current occupational status: retired Current occupation: semi retired Current gender identity: Male Vitals/I&O/Wt Last Vital Signs Temp 98.4 F 02/17/25 08:47 Pulse 62 02/17/25 15:16 Resp 18 02/17/25 08:47 BP 149/90 02/17/25 15:16 Pulse Ox 98 02/17/25 15:16 O2 Del Method Room Air 02/17/25 15:16 Weight last 48 hrs Weight 92.986 kg Physical Exam Narrative: Patient is alert and oriented to person place time and situation patient has no acute distress and denies chest pain at time of exam Neuro: Nonfocal exam HEENT head is normocephalic atraumatic pupils equal reactive light and accommodation extra muscles are intact there is no scleral icterus neck is supple no JVD carotid bruits or lymphadenopathy mucous membranes are moist and pink without lesions or exudates Cardiac regular rhythm normal S1-S2 no loud murmur auscultated Lungs: Clear to auscultation without wheezes rales or rhonchi Abdomen: Mild protuberant soft nontender nondistended normal active bowel sounds Extremities no significant edema no clubbing or cyanosis. Lymphatic: No lymphadenopathy noted in cervical axillary or inguinal areas Back no kyphosis or scoliosis no CVA tenderness Psych: Mood and affect are appropriate Skin no new rashes or lesions Data 02/17/25 09:04 02/17/25 09:04 Other Labs: Troponin 50/59/94 EKG 2: My Interpretation: Bradycardia with a rate of 51 right bundle branch block [address] segment depression in 1 to QT interval normal at 0.41 IN interval is normal at approximately 0.15 Training Officer Interpretation: SINUS BRADYCARDIA RIGHT BUNDLE BRANCH BLOCK [120+ ms QRS DURATION, UPRIGHT V1, 40+ ms S IN I/aVL/V4/V5/V6] Compared to ECG 02/17/2025 08:47:39 Sinus rhythm no longer present Electronically Signed On 02-17-2025 12:36:58 CDT by Beverly Kaplan M.D A&P Assessment and plan (1) NSTEMI (non-ST elevated myocardial infarction): Patient received aspirin oxygen 1 dose of Lovenox. Cardiology consulted for heart cath tomorrow n.p.o. after midnight tonight Nitro as needed further chest pain and call cardiology. (2) Hyperlipidemia, mixed: Patient denies history of hypercholesterolemia however in October his LDH was 170. Will anticipate starting statin (3) Hypertension: Hold blood pressure med at this time patient states he has stopped this losartan drug due to weight loss. But it still listed as a home medication Plan As above PDMP PDMP Reviewed: Not Reviewed Attestations Medical Necessity Statement*: Patient care in the hospital will cross 2 midnight stay with a non-STEMI. Patient is high risk for cardiac arrhythmia or worsening angina and infarct. Coding Level of Care Code Acute Code for [facility] Fwd Diagnoses NSTEMI (non-ST elevated myocardial infarction) I21.4 Hyperlipidemia, mixed E78.2 Essential hypertension I10 Hypertension type: essential hypertension
--- OUTSIDE RECORDS SUMMARY | 2025-02-17 17:18 | XMS_ITS | Clinical Summary ---
Author Organization [facility] Address [address] [facility] Attn: Epic Prelude ADT [place] [address] Care Team Providers Care Group Reservations Coordinator Name Role Phone Unavailable Primary Care Provider Unavailabl e Allergies No known active allergies Active Problems Problem Noted Date Diagnosed Date Status post trigger finger release 07/20/2016 Resolved Problems Problem Noted Date Diagnosed Date Resolved Date Trigger middle finger of right hand 11/04/2015 07/20/2016 Social History Tobacco Use Types Packs/Day Years Used Date Smoking Tobacco: Never Alcohol Use Standard Drinks/Week Comments Yes 0 (1 standard drink = 0.6 oz pur e alcohol) Sex and Gender Information Value Date Recorded Sex Assigned at Not on file Legal Sex Male 2:43 AM PROCESS OPERATOR Gender Identity Not on file Sexual Orientation Not on file Last Filed Vital Signs Vital Sign Reading Time Taken Comments Blood Pressure 146/91 08/10/2016 12:58 PM PROCESS OPERATOR Pulse 65 08/10/2016 12:58 PM PROCESS OPERATOR Temperature 36.7 C (98.1 F) 07/20/2016 10:15 AM CDT Respiratory Rate 18 06/03/2016 8:14 AM CDT Oxygen Saturation - - Inhaled Oxygen Concentration - - Weight 90.7 kg (200 lb) 08/10/2016 12:58 PM PROCESS OPERATOR Height 175.3 cm (5' 9 ) 08/10/2016 12:58 PM PROCESS OPERATOR Body Mass Index 29.53 08/10/2016 12:58 PM PROCESS OPERATOR Plan of Treatment Health Maintenance Due Date Last Done Comments DTAP/TDAP/TD VACCINES (1 - Tdap) 1975 COLORECTAL SCREENING 2001 Colorectal Cancer Screening 2001 FIT-DNA Q 3 years 2001 FIT/FOBT Q 1 year 2001 Flex Sig/CT Colonography Q 5 years 2001 PNEUMOCOCCAL VACCINE 50+ YEARS (1 of 1 - PCV) 08/15/20 06 ZOSTER VACCINE (1 of 2) 2006 INFLUENZA VACCINE (#1) 2024 RSV VACCINE (60+ or ) (1 - 1-dose 75+ series) 2031
--- OUTSIDE RECORDS SUMMARY | 2025-02-17 17:18 | XMS_ITS | Clinical Summary ---
Author Organization [facility] Address [address] [place] [id number] Care Team Providers Care Meat Cooler Name Role Phone Unavailable Primary Care Provider Unavailabl e Allergies No known active allergies Medications No known medications Active Problems Problem Noted Date Diagnosed Date Status post trigger finger release 07/20/2016 Resolved Problems Problem Noted Date Diagnosed Date Resolved Date Trigger middle finger of right hand 11/04/2015 07/20/2016 Social History Tobacco Use Types Packs/Day Years Used Date Smoking Tobacco: Never Alcohol Use Standard Drinks/Week Comments Yes 0 (1 standard drink = 0.6 oz pur e alcohol) rare Sex and Gender Information Value Date Recorded Sex Assigned at Not on file Legal Sex Male 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 Gender Identity Not on file Sexual Orientation Not on file Last Filed Vital Signs Vital Sign Reading Time Taken Comments Blood Pressure 146/91 08/10/2016 12:58 PM FOAMING MACHINE OPERATOR Pulse 65 08/10/2016 12:58 PM FOAMING MACHINE OPERATOR Temperature 36.7 C (98.1 F) 07/20/2016 10:15 AM CDT Respiratory Rate 18 06/03/2016 8:14 AM CDT Oxygen Saturation 96% 06/03/2016 8:14 AM CDT Inhaled Oxygen Concentration - - Weight 90.7 kg (200 lb) 08/10/2016 12:58 PM FOAMING MACHINE OPERATOR Height 175.3 cm (5' 9 ) 08/10/2016 12:58 PM FOAMING MACHINE OPERATOR Body Mass Index 29.53 08/10/2016 12:58 PM FOAMING MACHINE OPERATOR Plan of Treatment Health Maintenance Due [...] ) (1 - 1-dose 75+ series) 2031 Advance Directives For more information, please contact: [phone] * Full Code (Latest Code Status on File) Date Activated Date Inactivated Comments 06/03/2016 7:47 AM 06/03/2016 10:40 AM * Full Code Date Activated Date Inactivated Comments 06/03/2016 6:25 AM 06/03/2016 7:47 AM
--- OUTSIDE RECORDS SUMMARY | 2025-02-17 17:18 | XMS_ITS | Encounter Summary ---
Author Organization [facility] Address [address] [place] [address] Care Team Providers Care Maintenance Equipment Operator Name Role Phone Unavailable Primary Care Provider Unavailabl e Encounter Details Date Type Department Care Team (Late st Contact Info) Description 10/07/2015 Ancillary Orders [facility] [place] [address] Rj Walter, DO [address] [place] [address] Right hand pain (Primary Dx) Social History Tobacco Use Types Packs/Day Years Used Date Smoking Tobacco: Never Alcohol Use Standard Drinks/Week Comments Yes 0 (1 standard drink = 0.6 oz pur e alcohol) Sex and Gender Information Value Date Recorded Sex Assigned at Not on file Legal Sex Male 7:04 AM SUGAR CANE PLANTER Gender Identity Not on file Sexual Orientation Not on file documented as of this encounter Plan of Treatment Not on file documented as of this encounter Results * XR HAND 3+ VW RIGHT (10/07/2015 1:44 PM SUGAR CANE PLANTER) Anatomical Region Laterality Modality Wrist / Hand Computed Radiogr aphy Narrative 10/08/2015 8:51 AM SUGAR CANE PLANTER X-RAYS: Plain film x-rays demonstrate no significant osseous abnormalities. No calcifications. No soft tissue shadow abnormalities on the x-ray. Rj Walter D.O. [facility] NÉSTOR/nicolas Rj Walter DO DIAGNOSTIC IMAGING ORDERAB LES Final Result documented in this encounter Visit Diagnoses Diagnosis Right hand pain- Primary Pain in limb documented in this encounter
--- NOTE | 2025-02-17 18:19 | PC.NURSE ---
patient said he does not need a stool softener, in fact he said he sometimes said he has IBS.
--- NOTE | 2025-02-17 19:04 | PC.NURSE ---
per Dr Kaplan, start patient on heparin gtt at 0100 02/18
--- NOTE | 2025-02-17 19:11 | PM.CONSULT ---
Providers/Reason For Consult Consulting Physician/Specialty*: Internal medicine/hospitalist Reason for Consult*: NSTEMI Requesting Physician: Dr. Browning Attending Physician: Raymon Ansrai DO Primary Care Provider: Cairna Nguyễn MD History of Present Illness History of Present Illness Abhay Lara is a 69 year old male with no significant past medical history who presented with couple of days history of intermittent episodes of chest pain. Few of the episode of chest pain felt like a pressure deep inside lasting from 10 to 15 minutes without any exertion. 1 time he also felt shortness of air associated with the chest pain. Rest of systemic inquiry unremarkable. On arrival to the ER ECG showed sinus rhythm with right bundle branch block and nonspecific ST changes. Serial troponin cardiac enzymes elevated, NSTEMI. Currently patient is chest pain-free and completely asymptomatic. He is being treated for NSTEMI as per protocol. Review of Systems Narrative: Detailed 10 point systemic review unremarkable except for as mentioned above in the history of present illness. Medications/Allergies Home Medications ?Medication ?Instructions ?Recorded ?Confirmed ?Last Taken ?Type losartan 50 mg-hydrochlorothiazide 1 tab PO BID 90 days #180 tabs 04/09/24 02/17/25 02/16/25 Rx 12.5 mg tablet Held on 10/24/24. Instructions: pt holding on his own ascorbic acid (vitamin C) 1,000 mg 1,000 mg PO DAILY 02/17/25 02/17/25 02/16/25 History tablet (Vitamin C) cholecalciferol (vitamin D3) 125 125 mcg PO DAILY 02/17/25 02/17/25 02/16/25 History mcg (5,000 unit) tablet (Vitamin D3) garlic 300 mg capsule 300 mg PO DAILY 02/17/25 02/17/25 02/16/25 History multivitamin with minerals-folic 1 tab PO DAILY 02/17/25 02/17/25 02/16/25 History acid 400 mcg-lycopene 370 mcg tablet (One-A-Day Men's 50 Plus) omega-3 fatty acids-fish oil 684 1 cap PO DAILY 02/17/25 02/17/25 02/16/25 History mg-1,200 mg capsule,delayed release Allergies Allergy/AdvReac Type Severity Reaction Status Date / Time prednisone Allergy Mild ADR-Headach Verified 10/24/24 13:34 e Current Medications Generic Name Dose Route Start Last Admin Trade Name Freq PRN Reason Stop Dose Admin Docusate Sodium 100 mg 02/17/25 18:00 02/17/25 18:19 Docusate Sodium 100 Mg Capsule PO Not Given BID KALE PFSH Acute PFSH: Medical History BPH loc w urin obs/LUTS Urolithiasis Hypertension Surgical History H/O shoulder surgery Hx of cholecystectomy Family History Father , at age 92 No problems noted. Mother , at age 86 Stroke Social History Smoking and tobacco/nicotine status: never used tobacco/nicotine Alcohol intake: current Alcohol intake frequency: holidays/special occasions only Substance/Drug Use: never Marital status: Current occupational status: retired Current occupation: semi retired Current gender identity: Male Vitals/I&O/Wt Last Vital Signs Temp 98.5 F 02/17/25 18:04 Pulse 83 02/17/25 18:04 Resp 19 H 02/17/25 18:04 BP 165/91 02/17/25 18:04 Pulse Ox 99 02/17/25 18:04 O2 Del Method Room Air 02/17/25 18:04 02/17/25 02/17/25 02/17/25 06:59 14:59 22:59 Intake Total 240 / 240 Balance 240 / 240 Weight last 48 hrs Weight 205 lb Weight 205 lb Physical Exam Const: OTHER: Normal HENMT: OTHER: Normal Neck/C-Spine: OTHER: Normal Chest: OTHER: Normal chest movements. Resp: OTHER: Good air entry bilaterally. No added sounds. Cardio: OTHER: Normal 1st and 2nd heart sounds. No murmur. GI: OTHER: Soft nontender abdomen. Bowel sounds audible. Extremity: NARRATIVE EXTREMITY EXAM: Normal extremities. No pedal edema. Neuro: OTHER: Grossly intact and nonfocal. Skin: OTHER: Skin over face is warm and dry. Data 02/17/25 09:04 02/17/25 09:04 A&P Assessment and plan (1) NSTEMI (non-ST elevated myocardial infarction): 69-year-old old male patient with no significant past medical history now presenting with NSTEMI. Clinically hemodynamically stable. Currently chest pain-free. No pulmonary edema. His vitals are stable. Plan: NSTEMI management overnight as per protocol. I noted patient received a Lovenox 90 mg at 1240 in the afternoon. 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 I recommended not to give the second dose of Lovenox and instead start him on IV heparin at 1 AM. Patient will be for cardiac cath, and possible PCI in the morning. PDMP PDMP Reviewed: Not Reviewed Consult Attestations Medical Necessity Statement: NSTEMI Coding Level of Care Code 51887 Diagnoses NSTEMI (non-ST elevated myocardial infarction) I21.4 Time Spent (min) 32
[2025-02-17] MEDS: dextrose 5%-sod chloride 0.9% 1,000 ML 75 ML IV (23:17)
[2025-02-18] VITALS (59 sets, daily range): BP systolic 103–202; BP diastolic 72–112; PULSE 59–91; RESP 13–24; TEMP 36.2–37.1; O2SAT 97–100
[2025-02-18] MEDS: heparin 5,000 unit/mL INJ 1 mL IVP (01:10)
[2025-02-18] MEDS: heparin drip 25,000 UNIT/500 ML PREMIX 26 UNIT IV (01:11)
[2025-02-18 05:58] LABS: Platelet Count 166 10^3/cmm (157-399)
[2025-02-18 06:29] LABS: Thyroid Stimulating Hormone 2.62 uIU/mL (0.27-4.20)
[2025-02-18 07:20] LABS: Chol HDL Ratio 5.27 mg/dL (1.0-5.00); Cholesterol 174 mg/dL (0-200); HDL Cholesterol 33 mg/dL (60-100); LDL Cholesterol Calculated 115 mg/dL (50-129); LDL HDL Ratio 3.48 RATIO (0.00-3.22); Triglycerides 129 mg/dL (0-150)
--- NOTE | 2025-02-18 09:02 | PC.SOCIAL ---
IMM Update Pg. 2 of IMM Updated and reviewed with patient, who verbalized understanding. Copy provided at bedside.
--- NOTE | 2025-02-18 09:54 | P.PN_ITS ---
<Statement entered by Jesse Bhandari M.D - 02/21/25 08:48> Patient was evaluated and cared for in conjunction with an advanced practice practitioner.? I personally examined the patient and reviewed the chart and all pertinent data including imaging, telemetry, and laboratory results.? I discussed the patient in detail with the advanced practice practitioner.? Please see? their note for complete progress note, testing results and agreed upon plan of care for the patient. Patient presented with non-ST elevation [place]. Plan for coronary angiogram with possible PCI. Risks and benefits of procedure were discussed with patient and family in detail. They understand these and wants to proceed. GENERAL: Patient is alert, awake and oriented x3. HEART: Regular S1 and S2 LUNGS: Clear to auscultate bilaterally. CENTRAL NERVOUS SYSTEM: Grossly nonfocal. EXTREMITIES: Lower extremities without edema bilaterally. Subjective 2 Subjective: Patient continues to have some very mild chest pressure this morning. Troponin series: 50-> 59-> 93. Renal function was normal yesterday. He is on a heparin drip. Plan for coronary angiogram today. Vitals/I&O/Wt Last Vital Signs Temp 97.7 F 02/18/25 08:00 Pulse 81 02/18/25 08:00 Resp 16 02/18/25 08:00 BP 153/95 02/18/25 08:00 Pulse Ox 97 02/18/25 08:00 O2 Del Method Room Air 02/18/25 08:00 02/17/25 02/18/25 02/18/25 22:59 06:59 14:59 Intake Total 240 / 240 196.733 / 196.733 Output Total 350 / 350 Balance 240 / -110 -350 / -110 196.733 / 196.733 Weight last 48 hrs Weight 213 lb 12.8 oz Weight 205 lb Weight 205 lb Physical Exam 2 Const: COMMON NORMALS: no acute distress and patient oriented x3 GENERAL APPEARANCE: cooperative and comfortable ORIENTATION/CONSCIOUSNESS: Yes awake, Yes oriented to person, Yes oriented to place and Yes oriented to time Chest: COMMONS NORMALS: normal inspection of the chest and normal palpation of entire chest wall CHEST: Yes Symmetrical chest wall rise Resp: COMMON NORMALS: normal respiratory effort, No retractions, No use of accessory muscles and clear to auscultation bilaterally EFFORT & INSPECTION: Yes symmetric chest movement AUSCULTATION: clear to auscultation bilaterally Cardio: COMMON NORMALS: regular rate, regular rhythm, S1 normal heart sound present, S2 normal heart sound present, No gallops present (Cardio), No clicks present (Cardio), No murmurs present (Cardio) and No rub (Cardio) RATE: r egular rate RHYTHM: regular rhythm HEART SOUNDS: S1 normal heart sound present and S2 normal heart sound present PERIPHERAL PULSES: radial pulses present Extremity: COMMON NORMALS: no pedal edema Neuro: COMMON NORMALS: patient oriented x3 and moves all extremities S ENSORIUM/ORIENTATION: Yes oriented to person, Yes oriented to place and Yes oriented to time Data 02/18/25 04:57 02/17/25 09:04 A&P Assessment and plan (1) NSTEMI (non-ST elevated myocardial infarction): (2) Chest pain: (3) Hypertension: Plan Plan is for coronary angiogram today. Continue to remain n.p.o. until after the procedure. Benefits of procedure discussed with the patient by Dr. Bhandari. Patient consented to proceed. PDMP PDMP Reviewed: Not Reviewed Attestations 2 Medical Necessity Statement*: NSTEMI Coding Level of Care Code Acute Code for [facility] Diagnoses NSTEMI (non-ST elevated myocardial infarction) I21.4 Chest pain R07.9 Essential hypertension I10 Hypertension type: essential hypertension
--- NOTE | 2025-02-18 10:04 | PC.CHAP ---
Pastoral Care Encounter/Spiritual Assessment Type of Contact [] Declined deck engine operator visit [] Patient/Family/Request visit [] Outpatient visit [] Follow-up visit [] Physician referral [] Code/Alert [x] Routine visit [] Staff referral [] Actively dying [] Patient sleeping [] Family support [] [] Out of room [] Palliative care [] [] Receiving care in room [] Pre-surgical visit [] Trauma [] Long length of stay [] ICU visit [] Other: Relational/Emotional Strength [] Patient feels connected with others/family/visitors/staff [] Distress [] Loneliness/isolation [] Abandonment Spirituality of Patient [x] Person of Viviana [] Attends Hoahaoism of their Viviana [x] Believes in Prayer [] Reads Bible or Nondenominational materials [] There are Spiritual issues to be addressed Zoogler Interventions [x] Prayer [x Active listening [] Non-anxious presence [] Spiritual/emotional support [] Crisis/trauma care [] Spiritual counseling [] Bereavement support [] Provided bereavement packet [x] Provided Bible/devotional materials [] Provided toy/stuffed animal, coloring book to patient or family member [] Provided Communion [] Anointing/[place] [] Salvation [x] Completed spiritual assessment [] Other: Impact on Illness or Injury [] Angry [] Fearful [] Anxious [] Often cries [] Exhaustion [] Unable to work [] Unable to attend pentecostalism [] Unable to walk/stand [] Unable to read [] Unable to drive [] Unable to eat/drink [] Unable to sleep [] Unable to be with family [] Patient intubated [] Other: Summary Time spent with patient 10 min
--- NOTE | 2025-02-18 10:57 | W.PM.OPSUD ---
Surgery/Procedure H&P Update DATE OF PROCEDURE: February 18, 2025 DATE H&P PERFORMED: 02/17/25 H&P UPDATE INFORMATION: I have reviewed H&P completed within last 30 days, I have examined patient prior to procedure and No changes to prior documentation PREOP DIAGNOSIS: NSTEMI PRIMARY INDICATION FOR PROCEDURE: NSTEMI PLANNED PROCEDURE: Left heart cath with possible percutaneous coronary intervention PATIENT REASSESSED PRIOR TO SEDATION, WITH NO CHANGE NOTED: Yes PHYSICAL EXAM: alert, oriented x 3, clear to auscultation bilaterally and regular rate & rhythm AIRWAY EVAL/ANESTHESIA PLAN: normal airway, ASA III, Local Anesthesia, Risks, benefits & alternatives of sedation and/or procedure discussed and Patient agrees to continue as planned ADDITIONAL INFORMATION: Moderate sedation
--- NOTE | 2025-02-18 12:37 | P.PCN_ITS ---
Procedure Note: Date of procedure: 02/18/25 Pre-procedure diagnosis: NSTEMI Post-procedure diagnosis: other (Severe proximal to mid LAD stenosis s/p successful revascularization with 2 stents. Severe proximal to mid LCx and OM1 stenosis s/p successful revascularization with 2 stent) Procedure: Severe proximal LAD stenosis status post successful revascularization with 2 stents. Severe proximal to mid left circumflex artery stenosis and OM1 stenosis s/p successful revascularization with 2 stents. Patient has been loaded with aspirin and Plavix. Continue. High intensity statin therapy. Performing Provider: Jesse Bhandari Estimated blood loss (mL): 10 Complications: None Condition: stable Disposition: floor Coding Level of Care Code Acute Code for [facility] Fwd
--- NOTE | 2025-02-18 13:49 | ECG_ITS ---
[facility] Test Date: 2025-02-18 Pat Name: Abhay Lara Department: Room: 101 Gender: Male Bone Tender: : 1955 Requested By: Patti Carrasco Order Number: [id number] Danyelle MD: Emma Colby M.D. Measurements Intervals [place] Rate: 65 P: 63 OR: 171 QRS: 65 QRSD: 150 T: -9 QT: 396 QTc: 413 Interpretive Statements SINUS RHYTHM WITH MARKED RHYTHM IRREGULARITY, POSSIBLE NON-CONDUCTED PAC. RIGHT BUNDLE BRANCH BLOCK [120+ ms QRS DURATION, UPRIGHT V1, 40+ ms S IN I/aVL/V4/V5/V6] CRITICAL TEST RESULT WARNING: DATA QUALITY MAY AFFECT INTERPRETATION Compared to ECG 02/17/2025 16:54:07 No significant changes Electronically Signed On 02-19-2025 06:27:09 CDT by Emma Colby M.D. [email or web address]
[2025-02-18] MEDS: tirofiban 5 MG/100 ML PREMIX 2013.26 MG IV (14:56)
[2025-02-18] MEDS: sodium chloride 0.9% 1,000 ML 100 ML IV (14:58)
--- NOTE | 2025-02-18 15:09 | USCV_ITS ---
Abhay Lara Age: 69 Gender: M : 1955 Exam Date: 02/18/2025 23:51 Ordering Phys: Patti Carrasco Technologist: ALLYN Exam Location: [facility] [place] Indication: NSTEMI BP: 145 / 83 HR: 64 Rhythm: Sinus Technical Quality: Adequate MEASUREMENTS (Male / Female) Normal Values 2D ECHO LV Diastolic Diameter PLAX 4.4 cm 4.2 - 5.9 / 3.9 - 5.3 cm IVS Diastolic Thickness 1.1 cm 0.6 - 1.0 / 0.6 - 0.9 cm IVS Systolic Thickness 1.3 cm LVPW Diastolic Thickness 1.0 cm 0.6 - 1.0 / 0.6 - 0.9 cm LVPW Systolic Thickness 1.7 cm LVOT Diameter 2.0 cm LV Ejection Fraction 2D Teich 67.2 % LV Ejection Fraction MOD 4C 55.3 % LV Ejection Fraction MOD 2C 57.2 % LV Ejection Fraction 2C AL 58.9 % LA Diameter 2.4 cm Aorta at Sinotubular Diameter 2.5 cm IVC Diameter 2.1 cm M-MODE LA Ao Ratio MM 1.1 AV Cusp Separation MM 2.2 cm DOPPLER AV Peak Velocity 133.0 cm/s LVOT Peak Velocity 108.0 cm/s AV Area Cont Eq vti 3.1 cm squared AV Area Cont Eq pk 2.6 cm squared MV Peak Velocity 98.0 cm/s MV Area PHT 3.7 cm squared Mitral E to A Ratio 0.9 TV Peak Velocity 265.0 cm/s TR Peak Velocity 283.0 cm/s TR Peak Gradient 32.0 mmHg TV Peak E Velocity 39.0 cm/s PV Peak Velocity 113.0 cm/s FINDINGS Left Ventricle Normal left ventricular size and systolic function, EF55%. Mild left ventricular hypertrophy. Grade I/IV diastolic dysfunction (abnormal relaxation filling pattern), normal to mildly elevated filling pressures. Mild hypokinesia of the basal inferior wall segment. Right Ventricle The right ventricle is normal in size and function. Right Atrium The right atrium is normal in size. Left Atrium The left atrium is normal in size. Mitral Valve No gross abnormalities noted Aortic Valve No gross abnormalities noted Tricuspid Valve Sivt-ta-knuvaein tricuspid valve regurgitation. Pulmonic Valve No gross abnormalities noted Pericardium Normal pericardium without effusion. Aorta Normal ascending aorta dimension. IVC Normal inferior vena cava. CONCLUSIONS Normal left ventricular size and systolic function, EF55%. Mild left ventricular hypertrophy. Grade I/IV diastolic dysfunction (abnormal relaxation filling pattern), normal to mildly elevated filling pressures. Wall motion normality as mentioned above. Gjnu-ha-smocvewy tricuspid valve regurgitation. Estimated pulmonary artery peak systolic pressure 35 mmHg There is no pericardial effusion. There are no intracardiac masses. No similar previous studies are available for comparison Dr Emma Colby MD FAC (Electronically Signed) Final Date: 19 Feb 2025 08:40 S
[2025-02-18] MEDS: acetaminophen 325 mg Tablet 650 MG PO (16:56)
--- NOTE | 2025-02-18 18:32 | PM.PN ---
Subjective Subjective: 69-year-old male went to the [employer] [facility] [employer] with Dr. Bhandari today and had 2 LAD stents as well as 2 left circumflex stents. He was started on Plavix load aspirin and high intensity statin therapy. Patient states prior to this admission he had been doing occasional VR exercise to light sweating he considers himself to be in reasonably good condition physically. Patient has not had chest pain with exertion until when he was working on [employer]. He would have to stop exercise for 20 to 30 minutes for pain to subside. This was recurrent and associate with diaphoresis. By this morning his pain level was down to less than 1. He has had no further chest pain episodes since the stents Vitals/I&O/Wt Last Vital Signs Temp 98.3 F 02/18/25 15:55 Pulse 85 02/18/25 16:09 Resp 18 02/18/25 15:55 BP 145/83 02/18/25 15:55 Pulse Ox 100 02/18/25 15:55 O2 Del Method Room Air 02/18/25 15:55 02/18/25 02/18/25 02/18/25 06:59 14:59 22:59 Intake Total 1196.733 / 7569.566 2316.667 / 2324.400 Output Total 350 / 350 Balance -350 / -110 1196.733 / 0602.976 3842.667 / 2324.400 Weight last 48 hrs Weight 96.978 kg Weight 92.986 kg Weight 92.986 kg Physical Exam Narrative: General well-developed well-nourished male in no acute cardiopulmonary distress CV regular rate and rhythm Lungs clear to auscultation bilaterally Abdomen positive bowel sounds soft Right wrist with the pneumatic compression dressing Data 02/18/25 04:57 02/17/25 09:04 A&P Assessment and plan (1) NSTEMI (non-ST elevated myocardial infarction): Patient went to [employer] and had 2 LAD and 2 left circumflex stents. He is on aspirin and Plavix plus high intensity statin therapy Patient had questions regarding his stents and I tried to answer those to the best my ability. He is encouraged to address this further with Dr. Bhandari. He had high-grade stenosis in 2 vessels which was life-threatening and typically these are reduced to minimal or no narrowing with drug-eluting stents that we will need to be treated with aspirin and Plavix and statins long-term and without omission for at least 1 to 2 years (2) Hyperlipidemia, mixed: Patient denies history of hypercholesterolemia however in October his LDH was 170. Started atorvastatin 80 mg nightly (3) Hypertension: Blood pressure improved with stents. Will resume beta-marci and losartan Plan As above PDMP PDMP Reviewed: Not Reviewed Attestations Medical Necessity Statement*: Patient remained in the hospital overnight for monitoring and increase activity. Potential discharge tomorrow Coding Level of Care Code 32950 Diagnoses NSTEMI (non-ST elevated myocardial infarction) I21.4 Hyperlipidemia, mixed E78.2 Essential hypertension I10 Hypertension type: essential hypertension Time Spent (min) 35
[2025-02-18] MEDS: losartan 50 mg Tablet 25 MG PO (19:02)
[2025-02-18] MEDS: metoprolol succinate ER (24 HR) 25 mg Tablet 12.5 MG PO (19:05)
[2025-02-19 04:00] VITALS: BP 138/72; PULSE 68; RESP 13; TEMP 36.5; O2SAT 97
[2025-02-19 05:02] LABS: Basophils % 0.5 %; Eosinophils # 0.1 10^3/uL (0.0-0.8); Eosinophils % 1.3 %; Lymphocytes # 2.5 10^3/uL (0.8-4.8); Lymphocytes % 33.8 %; Mean Corpuscular HGB Conc 33.8 g/dL (30-55); Mean Corpuscular Hemoglobin 30.1 pg (27-33); Mean Corpuscular Volume 89.2 fl (82-101); Mean Platelet Volume 9.7 fL (7.4-10.4); Monocytes # 0.5 10^3/uL (0.2-0.9); Monocytes % 7.2 %; Neutrophils # 4.28 10^3/uL (1.8-7.7); Neutrophils % 57.1 %; Nucleated Red Blood Cells % 0 %; Platelet Count 173 10^3/cmm (157-399); Red Blood Count 4.71 10^6/uL (3.85-5.65); Red Cell Distribution Width 12.2 % (12.1-15.1); White Blood Count 7.51 10^3/uL (3.29-11.43)
[2025-02-19 05:30] LABS: Anion Gap 11.1 (5-19); Blood Urea Nitrogen 14 mg/dL (8-23); Calcium 9.2 mg/dL (8.5-10.5); Carbon Dioxide 27 mmol/L (22-29); Chloride 106 mmol/L (98-107); Creatinine Clr Calc Pharmacy 74.5542; Glomerular Filtration Rate 66.6 mL/min (90-130); Glucose 123 mg/dL (65-115); Osmolality Calculated 292 mOsm/kg (285-295); Potassium 4.1 mmol/L (3.5-5.1); Sodium 140 mmol/L (136-145)
[2025-02-19 06:00] VITALS: PULSE 64
[2025-02-19 07:46] VITALS: BP 131/75; PULSE 69; RESP 22; TEMP 36.6; O2SAT 98
[2025-02-19] MEDS: metoprolol succinate ER (24 HR) 25 mg Tablet 12.5 MG PO (07:56)
[2025-02-19] MEDS: losartan 50 mg Tablet 25 MG PO (07:56)
[2025-02-19] MEDS: docusate sodium 100 mg Capsule PO (07:56)
[2025-02-19] MEDS: clopidogrel 75 mg Tablet PO (07:56)
[2025-02-19] MEDS: aspirin 81 mg EC Tablet PO (07:56)
--- NOTE | 2025-02-19 08:00 | P.PN_ITS ---
<Statement entered by Jesse Bhandari M.D - 02/21/25 08:52> Patient was evaluated and cared for in conjunction with an advanced practice practitioner.? I personally examined the patient and reviewed the chart and all pertinent data including imaging, telemetry, and laboratory results.? I discussed the patient in detail with the advanced practice practitioner.? Please see? their note for complete progress note, testing results and agreed upon plan of care for the patient. Patient had successful revascularization of left circumflex into OM and proximal LAD with 4 stents. He is doing well. No chest pain. Dual antiplatelet therapy. High intensity statin therapy. GENERAL: Patient is alert, awake and oriented x3. HEART: Regular S1 and S2 LUNGS: Clear to auscultate bilaterally. CENTRAL NERVOUS SYSTEM: Grossly nonfocal. EXTREMITIES: Lower extremities without edema bilaterally. Subjective 2 Subjective: He has done well overnight, no chest pain or shortness of breath. He had PCI to the left circumflex/obtuse marginal, MONA x 4. Heart rates and blood pressures have been stable. Renal function normal this morning. No complications with right radial cath site. Vitals/I&O/Wt Last Vital Signs Temp 97.9 F 02/19/25 07:46 Pulse 69 02/19/25 07:46 Resp 22 H 02/19/25 07:46 BP 131/75 02/19/25 07:46 Pulse Ox 98 02/19/25 07:46 O2 Del Method Room Air 02/19/25 07:46 02/18/25 02/19/25 02/19/25 22:59 06:59 14:59 Intake Total 1731.000 / 3127.733 200 / 3127.733 Output Total 750 / 750 Balance 1731.000 / 2377.733 -550 / 2377.733 Weight last 48 hrs Weight 218 lb 3.2 oz Weight 213 lb 12.8 oz Weight 205 lb Weight 205 lb Physical Exam 2 Const: COMMON NORMALS: no acute distress and patient oriented x3 GENERAL APPEARANCE: cooperative ORIENTATION/CONSCIOUSNESS: Yes awake, Yes oriented to person, Yes oriented to place and Yes oriented to time Chest: COMMONS NORMALS: normal inspection of the chest and normal palpation of entire chest wall CHEST: Yes Symmetrical chest wall rise Resp: COMMON NORMALS: normal respiratory effort, No retractions, No use of accessory muscles and clear to auscultation bilaterally AUSCULTATION: clear to auscultation bilaterally Cardio: COMMON NORMALS: regular rate, regular rhythm, S1 normal heart sound present, S2 normal heart sound present, No gallops present (Cardio), No clicks present (Cardio), No murmurs present (Cardio) and No rub (Cardio) RATE: r egular rate RHYTHM: regular rhythm HEART SOUNDS: S1 normal heart sound present and S2 normal heart sound present PERIPHERAL PULSES: radial pulses present positive right 2+ and femoral pulses present positive right 2+ Neuro: COMMON NORMALS: patient oriented x3 and moves all extremities S ENSORIUM/ORIENTATION: Yes oriented to person, Yes oriented to place and Yes oriented to time Skin: WOUNDS: Yes surgical site (no hematoma palpable) Details: no odor Data 02/19/25 04:31 02/19/25 04:31 A&P Assessment and plan (1) NSTEMI (non-ST elevated myocardial infarction): (2) Hyperlipidemia, mixed: (3) Hypertension: Plan Okay to discharge home with aspirin, Plavix, atorvastatin, metoprolol succinate, losartan. Review of echocardiogram shows normal LVEF. Follow-up with cardiology clinic in 7 to 10 days. No lifting with right arm for the next 4 days. PDMP PDMP Reviewed: Not Reviewed Attestations 2 Medical Necessity Statement*: Plan for discharge home Coding Level of Care Code Acute Code for [facility] Diagnoses NSTEMI (non-ST elevated myocardial infarction) I21.4 Hyperlipidemia, mixed E78.2 Essential hypertension I10 Hypertension type: essential hypertension
--- NOTE | 2025-02-19 08:22 | P.DS_ITS ---
Discharge Providers Date of Admission: 02/17/25 11:54 Date of Discharge: February 19, 2025 Attending Provider at Admission: Raymon Ansari DO Attending Provider at Discharge: Oskar Manuel MD Consults: Jesse Bhandari MD Cardiology Primary Care Provider: Carina Nguyễn MD Diagnoses at Discharge Discharge Diagnosis (1) NSTEMI (non-ST elevated myocardial infarction): Details from hospital stay: Patient with exertional chest pain at home starting preceding admission. He had this several times at home and came in with NSTEMI. He had successful PCI to LAD with 2 stents and left circumflex with [address] Bhandari on 02/18/2025. He is started on Plavix aspirin and statin Status: Acute (2) Hyperlipidemia, mixed: Details from hospital stay: Treat with statin. Consider testing lipoprotein a and high-sensitivity C- reactive protein for additional treatment benefit. Goal LDL less than 50 Status: Acute (3) Hypertension: Details from hospital stay: Stable blood pressure 131/75 pulse 69. Consider addition of beta-marci outpatient if blood pressure not well-controlled Status: Acute Qualifiers: Hypertension type: essential hypertension Qualified Code(s): I10 - Essential (primary) hypertension Reason for Visit Reason for Visit: chest pain Brief History: Abhay Lara is a 69 year old male presents with episodes of chest pain since . He first noticed it while he was building a chicken coop. He describes the pain as substernal with a few centimeters of red radiation. He describes this as a chest pressure deep inside. This lasted 15 to 20 minutes he slowed down. And it resolved a few hours later he had a similar episode. Discontinued on Tuesday and Tuesday for 3-5 episodes per day while he continued to do some labor. However Tuesday night he was lying in bed when it first started at rest. He was able to fall asleep and in the morning when he awoke the pain was still there it was worse in intensity he described it again as pressure and discomfort he had a little nausea with it this time. Thus he came into the emergency room. Patient has no prior history of cardiac disease he states that he has been on losartan at 1 time but then lost weight and has not r esumed he states that he denies any cholesterol problems although labs in October show hypercholesterolemia and he denies tobacco abuse or diabetes mellitus. In the ED his initial troponin was 50, 2-hour troponin 59 and 6-hour troponin is 93. Called and spoke with cardiology who will prepare for cardiac catheterization tomorrow. Patient will be placed on oxygen he received a dose of Lovenox he will get aspirin and as needed nitro Hospital Course Hospital Course 69-year-old male admitted with NSTEMI and troponin initially was 50 and reached 93.44 but a peak was not reached on the lab. Cholesterol 261 triglycerides 436 and LDL 173. Patient had some mild chest discomfort in the hospital before going to percutaneous coronary intervention yesterday. See below brief report by Dr. Bhandari. Date coronary procedure: 02/18/25 Pre-procedure diagnosis: NSTEMI Post- procedure diagnosis: other (Severe proximal to mid LAD stenosis s/p successful revascularization with 2 stents. Severe proximal to mid LCx and OM1 stenosis s/p successful revascularization with 2 stent) Procedure: Severe proximal LAD stenosis status post successful revascularization with 2 stents. Severe proximal to mid left circumflex artery stenosis and OM1 stenosis s/p successful revascularization with 2 stents. Patient has been loaded with aspirin and Plavix. Continue. High intensity statin therapy. This morning the patient is pain-free and seen by myself and CHAITANYA Deluca. Patient is ready for discharge Physical Exam Narrative: General Well-developed well-nourished overweight male in no acute cardiopulmonary distress eating breakfast CV regular rate and rhythm Lungs clear to auscultation bilaterally Right wrist with dressing in place no bleeding or significant swelling or ecchymosis Mentation alert and oriented Skin warm and dry Discharge Data Studies Completed and Pending Completed Studies During Hospitalization Category Date Time Status XR chest 1V portable [id number] Stat Exams 02/17/25 08:43 Completed Pending at discharge Category Date Time Status COMMUNITY CASE MANAGER request for service Routine Exams 02/18/25 10:44 Taken Platelet Count Q2D Lab 02/21/25 04:00 Ordered CV. echo complete* [id number] Routine Ultrasound 02/18/25 15:09 Taken Radiology Impressions Chest X-Ray 02/17/25 08:43 IMPRESSION: No acute abnormality Laboratory Results WBC 7.51 10^3/uL (3.29-11.43) 02/19/25 04:31 RBC 4.71 10^6/uL (3.85-5.65) 02/19/25 04:31 Hgb 14.20 g/dL (11.27-16.99) 02/19/25 04:31 Hct 42.0 % (37-53) 02/19/25 04:31 MCV 89.2 fl (82-101) 02/19/25 04:31 MCH 30.1 pg (27-33) 02/19/25 04:31 MCHC 33.8 g/dL (30-55) 02/19/25 04:31 RDW 12.2 % (12.1-15.1) 02/19/25 04:31 Plt Count 173 10^3/cmm (157-399) 02/19/25 04:31 MPV 9.7 fL (7.4-10.4) 02/19/25 04:31 Neut % (Auto) 57.1 % 02/19/25 04:31 Lymph % (Auto) 33.8 % 02/19/25 04:31 [place] % (Auto) 7.2 % 02/19/25 04:31 Eos % (Auto) 1.3 % 02/19/25 04:31 Baso % (Auto) 0.5 % 02/19/25 04:31 Neut # (Auto) 4.28 10^3/uL (1.8-7.7) 02/19/25 04:31 Lymph # (Auto) 2.5 10^3/uL (0.8-4.8) 02/19/25 04:31 [place] # (Auto) 0.5 10^3/uL (0.2-0.9) 02/19/25 04:31 Eos # (Auto) 0.1 10^3/uL (0.0-0.8) 02/19/25 04:31 Baso # (Auto) 0.0 10^3/uL (0.0-0.1) 02/19/25 04:31 Nucleated RBC % (auto) 0 % 02/19/25 04:31 Nucleated RBCs # 0.0 /100WBC 02/19/25 04:31 APTT 137.0 SECONDS (23.9-36.7) H 02/18/25 07:43 Sodium 140 mmol/L (136-145) 02/19/25 04:31 Potassium 4.1 mmol/L (3.5-5.1) 02/19/25 04:31 Chloride 106 mmol/L (98-107) 02/19/25 04:31 Carbon Dioxide 27 mmol/L (22-29) 02/19/25 04:31 Anion Gap 11.1 (5-19) 02/19/25 04:31 BUN 14 mg/dL (8-23) 02/19/25 04:31 Creatinine 1.1 mg/dL (0.7-1.2) 02/19/25 04:31 GFR Calculation 66.6 mL/min (90-130) L 02/19/25 04:31 Glucose 123 mg/dL (65-115) H 02/19/25 04:31 Calculated Osmolality 292 mOsm/kg (285-295) 02/19/25 04:31 Calcium 9.2 mg/dL (8.5-10.5) 02/19/25 04:31 Total Bilirubin 0.5 mg/dL (0.15-1.2) 02/17/25 09:04 AST 40 U/L (0-40) 02/17/25 09:04 ALT 43 U/L (0-41) H 02/17/25 09:04 Alkaline Phosphatase 78 U/L (40-130) 02/17/25 09:04 Troponin T Baseline 50 ng/L (0-15) H 02/17/25 09:04 Troponin T 120 Minute 59.78 ng/L (0-15) H 02/17/25 11:13 Delta Troponin T 9.78 ABS# (0-10) 02/17/25 11:13 Troponin T Hi Sens 6Hr 93.44 ng/L (0-15) H 02/17/25 15:08 Troponin T Hi Sens 6Hr Delta 43.44 ng/L (0-12) H* 02/17/25 15:08 Total Protein 7.7 g/dL (6.6-8.7) 02/17/25 09:04 Albumin 4.4 g/dL (3.5-5.2) 02/17/25 09:04 Globulin 3.3 g/dL (1.3-4.6) 02/17/25 09:04 Triglycerides 129 mg/dL (0-150) 02/18/25 04:57 Cholesterol 174 mg/dL (0-200) 02/18/25 04:57 LDL Cholesterol, Calc 115 mg/dL (50-129) 02/18/25 04:57 HDL Cholesterol 33 mg/dL (60-100) L 02/18/25 04:57 LDL/HDL Ratio 3.48 RATIO (0.00-3.22) H 02/18/25 04:57 Cholesterol/HDL Ratio 5.27 mg/dL (1.0-5.00) H 02/18/25 04:57 Lipase 104 U/L (13-60) H 02/17/25 09:04 TSH 2.62 uIU/mL (0.27-4.20) 02/18/25 04:57 Procedures Performed PCI to left circumflex and left anterior descending with 2 stents in each vessel on 02/18/[address] Bhandari Vitals Last Vital Signs Temp 97.9 F 02/19/25 07:46 Pulse 69 02/19/25 07:46 Resp 22 H 02/19/25 07:46 BP 131/75 02/19/25 07:46 Pulse Ox 98 02/19/25 07:46 O2 Del Method Room Air 02/19/25 07:46 Discharge Plan Discharge Patient Disposition: Home Condition: Stable Prescriptions: New atorvastatin 40 mg Tablet 80 mg PO BEDTIME Qty: 90 0RF clopidogrel 75 mg Tablet 75 mg PO DAILY Qty: 100 1RF aspirin 81 mg Tablet,Delayed Release (Dr/Ec) 81 mg PO DAILY Qty: 100 0RF nitroglycerin 0.4 mg Tablet, Sublingual 0.4 mg sublingual Q5M PRN (Reason: Chest Pain) Qty: 20 0RF Continued losartan-hydrochlorothiazide 50-12.5 mg tablet 1 tab PO BID 90 Days Qty: 180 2RF garlic 300 mg Capsule 300 mg PO DAILY ascorbic acid (vitamin C) [Vitamin C] 1,000 mg Tablet 1,000 mg PO DAILY omega-3 fatty acids-fish oil 684-1,200 mg Capsule,Delayed Release(Dr/Ec) 1 cap PO DAILY cholecalciferol (vitamin D3) [Vitamin D3] 125 mcg (5,000 unit) Tablet 125 mcg PO DAILY One-A-Day Men's 50 Plus 400-370 mcg Tablet 1 tab PO DAILY Discharge Orders: Discharge Order (Routine); Ordered 02/19/25 Ordered By: Oskar Manuel Referrals: Renetta Solitario NP [Nurse Practitioner, Cardiology] - 02/26/25 8:00 am Carina Nguyễn MD [Primary Care Provider, [facility]] - 1 week Discharge Diet: Cardiac Discharge Activity: Increase activity as tolerated Patient Instructions: Chest Pain - Chest Wall, Nitroglycerin (By mouth), Aspirin (By mouth), Atorvastatin (By mouth), Clopidogrel (By mouth), Heart Attack (DC), Coronary Angioplasty (DC), Hyperlipidemia (DC), Opioid Safety Discharge Attestations Time Spent in Discharge Care*: greater than 30 min Time Spent in Smoking Cessation: Non-smoker Quality Metrics Clinical Quality Measures [ Acute Myocardial Infaction { Clinical Trial Participant: No; Contraindication to aspirin: None; Aspirin prescribed; Contraindication to statin: None; Statin prescribed; Contraindication to Fibrinolytics: Alternative treatment initiated}] Coding Level of Care Code 18104 Diagnoses NSTEMI (non-ST elevated myocardial infarction) I21.4 Hyperlipidemia, mixed E78.2 Essential hypertension I10 Hypertension type: essential hypertension Time Spent (min) 36
== END 2025-02-19 09:13 | disposition home or self-care (01) | DRG 321 ==
LOC: ER 12:10 → CSU 17:16
PROVIDERS: Internal Medicine; Internal Medicine Cardiovascular Disease; Nurse Practitioner Family; Admitting Provider Internal Medicine; Emergency Provider Emergency Medicine; PCP Family Medicine; Visit Provider Internal Medicine
PROC: 027137Z Dilation of Coronary Artery, Two Arteries with Four or More Drug-eluting Intraluminal Devices, Percutaneous Approach (ICD-10-PCS; principal; 2025-02-18 11:00)
PROC: 027137Z Dilation of Coronary Artery, Two Arteries with Four or More Drug-eluting Intraluminal Devices, Percutaneous Approach (ICD-10-PCS; 2025-02-18 11:00)
DX: I21.4 Non-ST elevation (NSTEMI) myocardial infarction (principal); E78.2 Mixed hyperlipidemia; I10 Essential (primary) hypertension
CPT/HCPCS: 36415; 71045; 80048; 80053; 80061; 83690; 84443; 84484; 85025; 85049; 85347; 85730; 92929; 92978; 93005; 93306; 93454; 96372; 96374; 96375; 96376; 99152; 99153; 99285; C1725; C1753; C1769; C1874; C1887; C1894; C9600; J1644; J1650; J2250; J2405; J3010; J3490; J7030; J7042; J9999; Q9967

== ENCOUNTER → 2025-02-26 07:53 | Outpatient (BNVA) | payer OTHER, SELFPAY | PROVIDERS: PCP Family Medicine; Referring Provider Internal Medicine; Visit Provider Nurse Practitioner Family | DX: Z09 Encounter for follow-up examination after completed treatment for conditions other than malignant neoplasm (principal); I12.9 Hypertensive chronic kidney disease with stage 1 through stage 4 chronic kidney disease, or unspecified chronic kidney disease; N18.2 Chronic kidney disease, stage 2 (mild); E78.2 Mixed hyperlipidemia; Z79.01 Long term (current) use of anticoagulants; Z79.82 Long term (current) use of aspirin; Z95.5 Presence of coronary angioplasty implant and graft; I25.2 Old myocardial infarction; I21.4 Non-ST elevation (NSTEMI) myocardial infarction | CPT/HCPCS: 36415; 80053; 82550; 85025; 99213 ==

== ENCOUNTER → 2025-04-01 14:35 | Outpatient (BNVA) | payer OTHER, SELFPAY | PROVIDERS: PCP Family Medicine; Visit Provider Internal Medicine | DX: I25.10 Atherosclerotic heart disease of native coronary artery without angina pectoris (principal); I10 Essential (primary) hypertension; E78.2 Mixed hyperlipidemia | CPT/HCPCS: 99213 ==

== ENCOUNTER 2025-04-23 10:22 | Outpatient (CLI) | payer OTHER, SELFPAY ==
--- NOTE | 2025-04-23 10:29 | XRR_ITS ---
PROCEDURE INFORMATION: Exam: XR Lumbosacral Spine Exam date and time: 04/23/2025 10:53 AM Age: 69 years old Clinical indication: Low back pain; Pulled back lifting heavy object x1 month limited rom; Additional info: M54.50 - low back pain, unspecified TECHNIQUE: Imaging protocol: Radiologic exam of the lumbosacral spine. Views: 2 or 3 views. COMPARISON: CR XR KUB [id number] 05/03/2022 12:44 PM FINDINGS: Bones/joints: There are 5 [id number] lumbar type vertebral bodies. Minimal S shaped curvature on the AP projection. Lateral view demonstrates normal alignment of the lumbar vertebral bodies. Multilevel mild disc space narrowing with degenerative endplate change and bony spurring. This is most advanced near the thoracolumbar junction. Advanced degenerative facet arthropathy is present within the mid and lower lumbar spine. No fracture. No suspicious bone lesion. The SI joints appear symmetric. Visualized sacral ala are intact. Moderate osteoarthritic changes are present at the right and left hip joint. Soft tissues: Unremarkable. Organs: Surgical clips are present within the right upper quadrant from prior cholecystectomy. Vasculature: Mild atherosclerotic plaque along the abdominal aorta. XR/XR lumbar spine 2-3V* [id number] IMPRESSION: No acute findings. Multilevel [id number] degenerative changes are present throughout the visualized portion of the lower thoracic and lumbar spine. Advanced degenerative facet arthropathy is present within the mid and lower lumbar spine. No fracture or malalignment. No suspicious bone lesion.
== END 2025-04-23 10:23 | disposition home or self-care (01) ==
LOC: RAD 10:26
PROVIDERS: PCP Family Medicine; Visit Provider Family Medicine
DX: M47.816 Spondylosis without myelopathy or radiculopathy, lumbar region (principal)
CPT/HCPCS: 72100

== ENCOUNTER → 2025-05-23 13:47 | Outpatient (BNVA) | payer OTHER, SELFPAY | PROVIDERS: PCP Family Medicine; Visit Provider Orthopaedic Surgery | DX: M51.360 Other intervertebral disc degeneration, lumbar region with discogenic back pain only (principal); M54.16 Radiculopathy, lumbar region; M47.896 Other spondylosis, lumbar region; G89.29 Other chronic pain | CPT/HCPCS: 72110; 99204 ==

== ENCOUNTER 2025-06-03 05:00 | Outpatient (RCR) | payer OTHER, SELFPAY | END 2025-07-02 23:59 | disposition home or self-care (01) | LOC: MPT 05:00 | PROVIDERS: PCP Family Medicine; Visit Provider Orthopaedic Surgery | DX: M54.50 Low back pain, unspecified (principal); G89.29 Other chronic pain | CPT/HCPCS: 97110; 97140; 97162; G0283 ==

== ENCOUNTER → 2025-06-17 10:49 | Outpatient (BNVA) | payer OTHER, SELFPAY | PROVIDERS: PCP Family Medicine; Referring Provider Nurse Practitioner Family; Visit Provider Anesthesiology Pain Medicine | DX: M47.816 Spondylosis without myelopathy or radiculopathy, lumbar region (principal); M54.50 Low back pain, unspecified; G89.29 Other chronic pain | CPT/HCPCS: 99204 ==

== ENCOUNTER 2025-08-01 10:56 | Outpatient (RCR) | payer OTHER, SELFPAY | END 2025-08-02 23:59 | disposition home or self-care (01) | LOC: MPT 10:56 | PROVIDERS: PCP Family Medicine; Visit Provider Orthopaedic Surgery | DX: M54.50 Low back pain, unspecified (principal); G89.29 Other chronic pain | CPT/HCPCS: 97110; 97140 ==

== ENCOUNTER 2025-08-27 12:00 | Outpatient (RCR) | payer OTHER, SELFPAY | END 2025-09-01 23:59 | disposition home or self-care (01) | LOC: MPT 12:00 | PROVIDERS: PCP Family Medicine; Visit Provider Orthopaedic Surgery | DX: M54.50 Low back pain, unspecified (principal); G89.29 Other chronic pain | CPT/HCPCS: 97110; 97112; 97140; 97530; 99213 ==

== ENCOUNTER → 2025-09-09 14:16 | Outpatient (BNVA) | payer OTHER, SELFPAY | PROVIDERS: PCP Family Medicine; Visit Provider Specialist | DX: M19.011 Primary osteoarthritis, right shoulder (principal); M19.012 Primary osteoarthritis, left shoulder; M75.101 Unspecified rotator cuff tear or rupture of right shoulder, not specified as traumatic; M75.102 Unspecified rotator cuff tear or rupture of left shoulder, not specified as traumatic | CPT/HCPCS: 73030; 99205; 99214 ==

== ENCOUNTER 2025-09-12 11:58 | Outpatient (RCR) | payer OTHER, SELFPAY | END 2025-09-18 08:34 | disposition home or self-care (01) | LOC: MPT 11:58 | PROVIDERS: PCP Family Medicine; Visit Provider Orthopaedic Surgery | DX: M54.50 Low back pain, unspecified (principal); G89.29 Other chronic pain | CPT/HCPCS: 97110; 97112; 97530 ==

== ENCOUNTER → 2025-10-01 12:16 | Outpatient (BNVA) | payer OTHER, SELFPAY | PROVIDERS: PCP Family Medicine; Visit Provider Internal Medicine | DX: I25.10 Atherosclerotic heart disease of native coronary artery without angina pectoris (principal); E78.2 Mixed hyperlipidemia; I10 Essential (primary) hypertension | CPT/HCPCS: 36415; 80061; 83721; 99213 ==